=== PATIENT | male | born 1960 | race Caucasian/White ===

== ENCOUNTER 2019-06-24 11:50 | Inpatient (IN) ==
[2019-06-24] MEDS ORDERED: ASPIRIN PR ONE (12:42)
[2019-06-24] MEDS ORDERED: ASPIRIN PO ONE (12:42)
--- NOTE | 2019-06-24 12:44 | EKG Report ---
Test Performed on : 06/24/2019 12:02:28 PM Test Reason : chest pain Blood Pressure : / mmHG Vent. Rate : 095 BPM Atrial Rate : 095 BPM P-R Int : 128 ms QRS Dur : 088 ms QT Int : 336 ms P-R-T Axes : 064 058 053 degrees QTc Int : 422 ms Normal sinus rhythm. Normal ECG When compared with ECG of 07-JAN-2012 08:17, No significant change was found Unconfirmed Result
[2019-06-24] MEDS ORDERED: NS 1,000 ML IV ONE (12:59)
[2019-06-24 13:00] LABS: BASO# 0.02 X1000 (0.0-0.2); BASO% 0.2 % (0.0-0.8); HEMATOCRIT 37.3 % (42.0-52.0); HEMOGLOBIN 12.8 g/dL (14.0-18.0); IMM GRAN# 0.03 X1000 (0.0-0.04); IMM GRAN% 0.3 % (0.0-0.5); LYMPH# 1.26 X1000 (1.2-3.4); LYMPH% 12.7 % (20.5-51.1); MCH 29.3 PG (27-31); MCHC 34.3 g/dL (33-37); MCV 85.4 FL (81-99); MONO# 0.84 X1000 (0.11-0.59); MONO% 8.4 % (1.7-9.3); MPV 10.8 FL (7.4-10.4); NEUT# 7.71 X1000 (1.4-6.5); NEUT% 77.4 % (42.2-75.2); PLT 202 X1000 (130-400); RBC 4.37 XMIL (4.7-6.1); RDW 14.1 % (11.5-14.5); WBC 9.96 X1000 (4.8-10.8)
[2019-06-24 13:05] LABS: INR 1.12; PROTIME 14.5 Seconds (11.0-16.0)
[2019-06-24 13:06] LABS: PTT 32.3 Seconds (22.3-41.8)
--- NOTE | 2019-06-24 13:24 | Diag Imaging Result Doc PS360 ---
EXAM: CHEST-2 VIEWS 06/24/2019 HISTORY: cp TECHNIQUE: PA and lateral chest COMMENT: There is prominent interstitial opacity bilaterally which was also apparently present on 06/14/2017. The heart size and pulmonary vascularity are within normal limits. IMPRESSION: Questionable interstitial fibrosis. Otherwise no evidence of acute disease. Electronically signed by Lg Talbert 06/24/2019 1:22 PM
[2019-06-24 14:05] LABS: AGAP 18; ALB/GLOB RATIO 1.6; ALBUMIN 4.5 g/dL (3.5-5.0); ALKALINE PHOSPHATASE 64 U/L (32-122); BUN 41 mg/dL (8-22); CHLORIDE 97 mmol/L (98-107); CK PROFILE 196 U/L (24-204); COSMO 280; CREATININE 1.1 mg/dL (0.7-1.2); ESTIMATED GFR > 60; GLUCOSE 102 mg/dL (70-104); GOT 25 U/L (10-34); GPT 21 U/L (10-44); POTASSIUM 4.3 mmol/L (3.5-5.1); SODIUM 135 mmol/L (136-145); TCO2 20 mmol/L (25-35); TOTAL BILIRUBIN 0.52 mg/dL (0.20-1.00); TOTAL PROTEIN 7.3 g/dL (6.3-8.3)
[2019-06-24] MEDS ORDERED: ZOFRAN IV ONE (15:12)
[2019-06-24] MEDS ORDERED: MORPHINE IV ONE (15:12)
--- NOTE | 2019-06-24 15:19 | PROVIDER DOCUMENTATION ---
This chart was entered by Marques Sequeira Scribe, acting as scribe for Louis Reyna MD. HPI-Chest Pain - General Chief Complaint: Chest Pain Stated Complaint: CP Time Seen by Provider: 06/24/19 12:24 Source: patient Allergies/Adverse Reactions: Patient Allergies Allergy/AdvReac Type Severity Reaction Status Date / Time No Known Allergies Allergy Verified 06/14/17 11:58 Home Medications: Home Medication List Medication Instructions Recorded Confirmed Last Taken Type Amoxicillin/Pot Clavulanate 875 mg PO Q12HR #14 tablet 04/17/16 Unknown Rx [Augmentin] Ciprofloxacin 0.3% Ophth Soln 2 drop BOTH EARS TID #1 bottle 04/17/16 Unknown Rx [Ciloxan Ophth Soln] Hydrocodone/Acetaminophen [[place] 10 mg PO BID 04/17/16 06/24/19 Unknown History 10-325 Tablet] Metformin [Glucophage] 500 mg PO DAILY 04/17/16 06/24/19 Unknown History Diphenoxylate/Atropine [Lomotil] 1 each PO 4XDAY PRN PRN #20 tablet 06/14/17 Unknown Rx Calcium 500 mg PO DAILY 06/24/19 06/24/19 Unknown History Gabapentin 300 mg PO BID 06/24/19 06/24/19 Unknown History Hydrochlorothiazide 25 mg PO DAILY 06/24/19 06/24/19 Unknown History Levothyroxine [Synthroid] 137 mcg PO DAILY 06/24/19 06/24/19 Unknown History Methocarbamol 500 mg PO Q8H PRN PRN 06/24/19 06/24/19 Unknown History Metoprolol Succinate/Hctz 100 mg PO DAILY 06/24/19 06/24/19 Unknown History [Metoprolol ER-Hctz 100-12.5 mg] Omeprazole 40 mg PO DAILY 06/24/19 06/24/19 Unknown History - History of Present Illness-CP Nature of Presenting Problem: Pt is a 58 yom who presents to the ED with a CC of chest pain. Pt states his chest pain is in the center of his chest and describes it as a pressure. Pt states his chest pain began last night and has continued on and off to today. Pt reports being nauseas, vomiting, being congested, and coughing yesterday. Pt also complains of left sided neck pain, abdominal pain, and shortness of breath. Pt denies any fever or extremity pain. Pt states he was told to come to the ED by his PCP this morning for a low blood pressure. Pt reports being a 1/2 ppd smoker. Location: reports: central Chest Pain Radiation: reports: neck Quality of Pain: reports: pressure Severity in ED: mild Onset/Duration: 24 hours ago Timing: still present Associated Symptoms: reports: abdominal pain, nausea, shortness of breath, vom iting Similar Symptoms Previously?: No Recently Seen Here or By Another Healthcare Provider: Yes Review of Systems - Adult - REVIEW OF SYSTEMS - ADULT Constitutional: reports: see HPI Eyes: reports: no symptoms reported Ears, Nose, Mouth & Throat: reports: no symptoms reported Cardiovascular: reports: see HPI, chest pain Respiratory: reports: see HPI, cough, shortness of breath Gastrointestinal: reports: see HPI, abdominal pain, nausea, vomiting Genitourinary: reports: no symptoms reported Integumentary: reports: no symptoms reported Neurological: reports: no symptoms reported Psychiatric: reports: no symptoms reported Endocrine: reports: no symptoms reported Hematologic/Lymphatic: reports: no symptoms reported Allergic/Immunologic: reports: no symptoms reported All Other Systems: Reviewed and Negative Past History - Adult - PAST MEDICAL HISTORY-ADULT Review of Records: reports: Old Records Reviewed, Nursing Assessment Review, Me dications Reviewed, Social history reviewed & non-contributory. Major Childhood Illnesses: reports: denies history Cardiovascular: reports: HTN Respiratory: reports: denies history Gastrointestinal: reports: denies history Obstetrical/Gynecological: reports: denies history Genitourinary: reports: denies history Musculoskeletal: reports: denies history Neurological: reports: denies history Endocrine/Immune: reports: Diabetes, thyroid disorder Other Conditions: reports: deaf/hard of hearing - PRIOR SURGERIES/PROCEDURES Surgical/Procedure History: reports: none - IMMUNIZATION STATUS Childhood Immunizations: See Nurse Assessment Flu Vaccine: See Nurse Assessment - FAMILY HISTORY Family History: reviewed, not pertinent - SOCIAL HISTORY Smoking: non-smoker, quit greater than 1 year Substance Use: none/never, denies Alcohol Use Frequency: never Physical Exam-General - PHYSICAL EXAM-ADULT Initial Vital Signs Reviewed: Yes - CONSTITUTIONAL General Appearance: alert, mild distress - EYES Eyes: PERRL/EOMI, pink conjunctivae - NECK Neck: limited range of motion - RESPIRATORY Respiratory: chest non-tender, lungs clear, normal breath sounds, no pleuratic chest pain, no respiratory distress - CARDIOVASCULAR Cardiovascular: normal peripheral pulses, regular rate, rhythm, no edema, no gallop - GASTROINTESTINAL (ABDOMEN) Abdominal Exam: tenderness (RUQ, epigastric regions) - MUSCULOSKELETAL Extremity: normal range of motion, non-tender - SKIN Integumentary: normal color, warm/dry - NEUROLOGIC Neurologic: grossly normal, no motor/sensory deficits - PSYCHIATRIC Psych/Mental Status: normal mood/affect, normal thought content, normal thought process Progress - PLAN OF CARE/RESULTS Progress/Plan/Lab Results: Vital Signs - 8 hr 06/24/19 12:04 06/24/19 12:14 Temperature 98.2 F Pulse Rate 93 H 90 Respiratory Rate 20 17 Blood Pressure 93/67 88/65 O2 Sat by Pulse Oximetry 98 96 Laboratory Results - last 24 hr 06/24/19 06/24/19 06/24/19 12:47 12:47 12:47 WBC 9.96 RBC 4.37 L Hgb 12.8 L Hct 37.3 L MCV 85.4 MCH 29.3 MCHC 34.3 RDW Std Deviation 14.1 Plt Count 202 MPV 10.8 H Immature Gran % (Auto) 0.3 Neut % (Auto) 77.4 H Lymph % (Auto) 12.7 L [place] % (Auto) 8.4 Eos % (Auto) 1.0 Baso % (Auto) 0.2 Immature Gran # (Auto) 0.03 Neut # (Auto) 7.71 H Lymph # (Auto) 1.26 [place] # (Auto) 0.84 H Eos # (Auto) 0.10 Baso # (Auto) 0.02 PT INR PTT (Actin FS) Sodium 135 L Potassium 4.3 Chloride 97 L Carbon Dioxide 20 L Anion Gap 18 BUN 41 H Creatinine 1.1 Estimated GFR/1.73 m2 > 60 BUN/Creatinine Ratio 37 Glucose 102 Calculated Osmolality 280 Calcium 10.0 Total Bilirubin 0.52 AST 25 ALT 21 Alkaline Phosphatase 64 Creatine Kinase 196 Troponin T Otb-M-Yzidzbvbuas Pept 53 Total Protein 7.3 Albumin 4.5 Globulin 2.8 Albumin/Globulin Ratio 1.6 06/24/19 06/24/19 12:47 12:47 WBC RBC Hgb Hct MCV MCH MCHC RDW Std Deviation Plt Count MPV Immature Gran % (Auto) Neut % (Auto) Lymph % (Auto) [place] % (Auto) Eos % (Auto) Baso % (Auto) Immature Gran # (Auto) Neut # (Auto) Lymph # (Auto) [place] # (Auto) Eos # (Auto) Baso # (Auto) PT 14.5 INR 1.12 PTT (Actin FS) 32.3 Sodium Potassium Chloride Carbon Dioxide Anion Gap BUN Creatinine Estimated GFR/1.73 m2 BUN/Creatinine Ratio Glucose Calculated Osmolality Calcium Total Bilirubin AST ALT Alkaline Phosphatase Creatine Kinase Troponin T < 0.010 Boj-N-Xiewzldqlru Pept Total Protein Albumin Globulin Albumin/Globulin Ratio Orders Category Date Time Status Cardiac Monitoring DIRECTED Care 06/24/19 12:42 Active Oxygen Therapy- ED Nursing DIRECTED Care 06/24/19 12:42 Active Saline Loc NOW Care 06/24/19 12:42 Active CHEST-2 VIEWS [RAD] Stat Exams 06/24/19 12:42 Completed CBC WITH ELECTRONIC DIFF [HEME] Stat Lab 06/24/19 12:47 Completed CK PROFILE [SP CHEM] Stat Lab 06/24/19 12:47 Completed COMPREHENSIVE METABOLIC PANEL [CHEM] Stat Lab 06/24/19 12:47 Completed PRO B-NATRIURETIC PEPTIDE Stat Lab 06/24/19 12:47 Completed PROTIME WITH INR [COAG] Stat Lab 06/24/19 12:47 Completed PTT [COAG] Stat Lab 06/24/19 12:47 Completed TROPONIN T Stat Lab 06/24/19 12:47 Completed URINALYSIS W/POSS RFLX CULT [URINALYSIS] Stat Lab 06/24/19 15:07 Uncollected 0.9% Sodium Chloride Inj [Ns] 1,000 ml Med 06/24/19 12:59 Discontinued IV 999 mls/hr Aspirin Med 06/24/19 12:42 Discontinued 300 mg HI NOW ONE Aspirin Med 06/24/19 12:42 Discontinued 325 mg PO NOW ONE Morphine Med 06/24/19 15:12 Once 2 mg IV NOW ONE Ondansetron [Zofran] Med 06/24/19 15:12 Once 8 mg IV NOW ONE CP/SOB/Palp >45 yrs of Age Stat Oth 06/24/19 12:42 Ordered EKG [EKG] Stat Ther 06/24/19 12:08 Draft Result Diagrams: 06/24/19 12:47 06/24/19 12:47 - EKG 1 Time of EKG reading by physician:: 13:00 EKG Read and Signed by:: Louis Reyna EKG Interpretation (*Must complete 3 of following elements*): Normal Rate: 95 Rhythm: NSR [place]: normal QRS: normal HI Interval: normal ST Wave: normal - XRAY 1 XRAY: Bilateral XRAY Study: Chest Impression: See EMR Report (EXAM: CHEST-2 VIEWS 06/24/2019 HISTORY: cp TECHNIQUE: PA and lateral chest COMMENT: There is prominent interstitial opacity bilaterally which was also apparently present on 06/14/2017. The heart size and pulmonary vascularity are within normal limits. IMPRESSION: Questionable interstitial fibrosis. Otherwise no evidence of acute disease. Electronically signed by Lg Talbert 06/24/2019 1:22 PM 06/24/19 1322 Interpreting Physician: Lg Talbert MD Dictated Date/Time: 06/24/19 1321 cc: Louis Reyna MD; Ash Driver MD) Departure - Departure Date of Disposition Decision: 06/24/19 Time of Disposition Decision: 15:18 DIAGNOSIS: Hypotension Qualifiers: Hypotension type: unspecified hypotension type Qualified Code(s): I95.9 - Hypotension, unspecified Chest pain Qualifiers: Chest pain type: unspecified Qualified Code(s): R07.9 - Chest pain, unspecified Disposition: ADMITTED INPATIENT 09 Certified Medical Emergency: Emergent Condition: Good Additional Freetext Instructions: ED Follow Up Instructions: You have been treated by a care provider in the Emergency Department. These instructions are being provided to you so you can have an understanding of how to care for yourself upon discharge. Upon discharge from the Emergency Department, you are responsible for making arrangements for follow-up care by a physician of your choice. Take all prescribed medications as directed. Return to the Emergency Department immediately for any new or worsening sym ptoms. You may call the Physician Referral phone number at [phone] to obtain a list of Physicians who are taking new patients. Referrals and Follow-Ups: Ash Driver MD [Primary Care Provider] - - Critical Care Note This patient required my direct & personal management of CC.: No Attestation - Physician/ LILLIE Attestation Patient care was provided by Advanced Practice Provider:: No The physician spent face to face time with patient:: Yes Advanced Practice Provider documentation review:: Supervising physician onsite and consulted in the evaluation and care of this patient. The physician did have a face to face encounter with the patient. This chart was documented by the indicated scribe, (Marques Sequeira, [place]) and accurately reflects the services I performed and decisions made by me, Louis Reyna MD, as attested by the provider's signature.
[2019-06-24 16:12] LABS: URINE SOURCE CLEAN CATCH
[2019-06-24 16:14] LABS: BILIRUBIN URINE NEGATIVE (NEGATIVE); BLOOD URINE SMALL (NEGATIVE); COLOR YELLOW; GLUCOSE URINE NEGATIVE (NEGATIVE); KETONE URINE 10 mg/dL (NEGATIVE); LEUKOCYTES URINE NEGATIVE (NEGATIVE); NITRITE URINE NEGATIVE (NEGATIVE); PROTEIN URINE NEGATIVE (NEGATIVE); SP GRAVITY URINE 1.015; TURBIDITY URINE CLEAR (CLEAR); UROBILINOGEN URINE NORMAL (NORMAL)
[2019-06-24 16:15] LABS: UR EPITHELIAL CELLS <10 /HPF (<10); URINE BACTERIA NEGATIVE /HPF; URINE RBC <10 /HPF (<10); URINE WBC <10 /HPF (<10)
[2019-06-24] MEDS ORDERED: TYLENOL PO PRN (16:53)
[2019-06-24] MEDS ORDERED: PEPCID IV ONE (16:53)
[2019-06-24] MEDS ORDERED: SODIUM CHLORIDE 0.9% INJ ONE (16:53)
[2019-06-24] MEDS ORDERED: G.I. COCKTAIL PO ONE (16:53)
[2019-06-24] MEDS ORDERED: SODIUM CHLORIDE 0.9% INJ SCH (16:53)
[2019-06-24] MEDS: NS 1,000 ML IV SCH (17:47)
--- NOTE | 2019-06-24 17:53 | HISTORY AND PHYSICAL ---
PRIMARY CARE PROVIDER: GRAZYNA Weems [employer]VERTISING SALES MANAGER: Juan Pablo Mcinotsh MD HISTORY OF PRESENT ILLNESS: Mr. Zamorano is a 58-year-old male who carries a past medical history of hypertension, diabetes mellitus, hypothyroidism, hard of hearing. He reports over the past month he has had an epigastric type chest pain with eating and over the last few days, even having it with drinking water. He reported last night that the pain became so severe that he was unable to sleep, and it was causing him to have nausea and vomiting with food and drink. His blood pressure became low last night as well. He had some dizziness. He said the chest pain feels like a constant pain or pressure. He does have some left-sided neck discomfort but could not really describe it. He states he felt like he might have strained it, but it is not really muscle pain either. It hurts even with swallowing, moving his neck or just sitting still. He went to see his PCP today, Josephine Lau. He states his blood pressure was a little on the low side, so he was referred to the ED. When he came in initially, his blood pressure was 93/67. He was given IV morphine, dropped his pressure down to 88/65. He was given a fluid bolus. In the room, his blood pressure was 120s over 60s. He does have somewhat of a headache today. He denied any fever, chills, cough, palpitations. No change in bowel habits. No bright red or dark tarry stools. He states he has always had blood in his urine that they could never really find the root cause, but he does have a history of kidney stones. His first set of cardiac enzymes in the ED were negative. Chest x-ray is questionable for interstitial fibrosis. Initially, we will rule him out for any cardiac issues, seems to be more atypical type chest pain. We will also add IV PPI b.i.d. and give him a GI cocktail and possibly consult GI over the weekend as well. Could be a ulcer or some gastroparesis given his diabetes. PAST MEDICAL HISTORY: 1. Hypertension. 2. Diabetes mellitus. 3. Hypothyroidism. 4. Hard of hearing. SOCIAL HISTORY: He is . He quit smoking more than a year ago. No alcohol or illicit drug use. ALLERGIES: No known drug allergies. HOME MEDICATIONS: Are still in the process of being verified, but calcium, gabapentin, hydrochlorothiazide, [place], Synthroid, Glucophage, methocarbamol, metoprolol, Prilosec. PHYSICAL EXAMINATION: VITAL SIGNS: Temperature is 98.2 degrees, heart rate 90, respirations 17, blood pressure while I was in the room was 120s over 60s, O2 96% on room air. GENERAL: Mr. Zamorano is a 58-year-old male who is lying on the right side on the stretcher in no acute distress. HEENT: Atraumatic, normocephalic. PERRL. NECK: Supple. Trachea midline. CARDIOVASCULAR: S1, S2 appreciated. No murmurs, gallops or rubs noted. RESPIRATORY: Lung sounds clear bilaterally. GASTROINTESTINAL: Soft, nontender, nondistended. Positive bowel sounds 4 quads. EXTREMITIES: Negative for edema. Bilateral pedal pulses were palpable. NEUROLOGIC: No focal deficits noted. DIAGNOSTIC DATA: EKG normal sinus rhythm at 95 beats per minute. Chest x-ray questionable interstitial fibrosis. LABORATORY DATA: White count 9, hemoglobin and hematocrit 12 and 37, platelet count is 202,000. Sodium 135, potassium 4.3, BUN 41, creatinine 1.1, blood glucose is 102. Troponin less than 0.010. Urinalysis: Small blood, negative for bacteria, negative for nitrites. ASSESSMENT AND PLAN: 1. Atypical chest pain. We will continue to rule out with cardiac enzymes. We will get an echocardiogram, consult Cardiology in the a.m. Continue with full-dose aspirin. Monitor him on telemetry. Recheck an EKG in the morning. 2. Gastroesophageal reflux disease. We will continue with IV PPI, not rule out any ulcer or gastroparesis as he states the pain is worsening with food and even water. 3. Weight loss of 42 pounds over the past couple of months; however, the at the bedside stated that he was placed on Trulicity and then taken off to see if his symptoms got better. We will continue with. 4. Diabetes mellitus type 2. We will place him on fingerstick blood sugars and sliding scale. 5. Hypertension. Patient was borderline hypotensive on arrival, was given morphine and then a saline bolus. We will hold off on his blood pressure medications until the a.m. Further recommendation to follow physician evaluation, laboratory and diagnostic data. Dictated by GRAZYNA Silva for MD Eez Dixon#: [id number] cc: MD Josephine Dixon CRNP I performed a face to face encounter on the patient. I reviewed all labs and imaging on the patient. I agree with the H&P as dictated. MTDD
--- NOTE | 2019-06-24 18:31 | EKG Report ---
Test Performed on : 06/24/2019 6:20:01 PM Test Reason : CP Blood Pressure : / mmHG Vent. Rate : 101 BPM Atrial Rate : 101 BPM P-R Int : 160 ms QRS Dur : 092 ms QT Int : 332 ms P-R-T Axes : 000 004 129 degrees QTc Int : 430 ms Sinus tachycardia. Low voltage QRS Abnormal QRS-T angle, consider primary T wave abnormality Abnormal ECG When compared with ECG of 24-JUN-2019 12:02, (Unconfirmed) Nonspecific T wave abnormality now evident in Lateral leads Confirmed by Harriett Kim MD ([id number]) on 06/28/2019 8:28:19 AM
[2019-06-24 18:57] LABS: MAGNESIUM 1.4 mg/dL (1.5-2.7)
[2019-06-24] MEDS: NEURONTIN PO SCH (20:24)
[2019-06-24] MEDS: PEPCID IV SCH (20:25)
[2019-06-24] MEDS: ZOFRAN IV PRN (20:25)
[2019-06-24] MEDS: HUMALOG SUBQ SCH (20:34)
[2019-06-25] MEDS: ZOFRAN IV PRN (03:34)
[2019-06-25] MEDS: HUMALOG SUBQ SCH ×4 (06:01→20:59)
[2019-06-25 06:40] LABS: BASO# 0.02 X1000 (0.0-0.2); BASO% 0.2 % (0.0-0.8); EOS# 0.09 X1000 (0.0-0.7); HEMATOCRIT 35.5 % (42.0-52.0); HEMOGLOBIN 11.7 g/dL (14.0-18.0); LYMPH# 1.26 X1000 (1.2-3.4); LYMPH% 14.4 % (20.5-51.1); MCH 29.2 PG (27-31); MCV 88.5 FL (81-99); MONO# 0.98 X1000 (0.11-0.59); MONO% 11.2 % (1.7-9.3); NEUT# 6.37 X1000 (1.4-6.5); NEUT% 73.2 % (42.2-75.2); PLT 182 X1000 (130-400); RBC 4.01 XMIL (4.7-6.1); RDW 14.1 % (11.5-14.5); WBC 8.72 X1000 (4.8-10.8)
[2019-06-25 07:03] LABS: HEMOGLOBIN A1C 5.9 % (4.8-6.0)
[2019-06-25 07:23] LABS: AGAP 9; ALB/GLOB RATIO 1.2; ALBUMIN 3.9 g/dL (3.5-5.0); ALKALINE PHOSPHATASE 57 U/L (32-122); BUN 25 mg/dL (8-22); CALCIUM 9.1 mg/dL (8.8-10.2); CHLORIDE 101 mmol/L (98-107); CHOLESTEROL 168 mg/dL (0-200); COSMO 276; ESTIMATED GFR > 60; GLUCOSE 98 mg/dL (70-104); GOT 15 U/L (10-34); GPT 16 U/L (10-44); HDL 27 mg/dL (35-55); LDL 112 mg/dL; SODIUM 136 mmol/L (136-145); TCO2 26 mmol/L (25-35); TOTAL BILIRUBIN 0.42 mg/dL (0.20-1.00); TOTAL PROTEIN 7.1 g/dL (6.3-8.3); TRIGLYCERIDES 145 mg/dL (39-160); VLDL 29 mg/dL
--- NOTE | 2019-06-25 07:38 | Diag Imaging Result Doc PS360 ---
CHEST-PORTABLE - 06/25/2019 INDICATION: Chest Pain COMPARISON: 06/24/2019 FINDINGS: The lungs are normally expanded and clear. Heart size and mediastinal contours are normal. No pneumothorax or pleural effusion. IMPRESSION: Negative exam. Electronically signed by Presley Turner 06/25/2019 7:36 AM
[2019-06-25] MEDS: NS 1,000 ML IV SCH (07:59)
[2019-06-25] MEDS ORDERED: NORCO-10 PO SCH (09:00)
[2019-06-25] MEDS: SYNTHROID PO SCH (09:11)
[2019-06-25] MEDS: NEURONTIN PO SCH ×2 (09:12→20:59)
[2019-06-25] MEDS: ASPIRIN PO SCH (09:12)
[2019-06-25] MEDS: PEPCID IV SCH ×2 (09:12→20:59)
--- NOTE | 2019-06-25 09:14 | EKG Report ---
Test Performed on : 06/25/2019 06:36:52 AM Test Reason : chest pain Blood Pressure : / mmHG Vent. Rate : 091 BPM Atrial Rate : 091 BPM P-R Int : 134 ms QRS Dur : 094 ms QT Int : 354 ms P-R-T Axes : 069 042 054 degrees QTc Int : 435 ms Normal sinus rhythm. Normal ECG When compared with ECG of 24-JUN-2019 18:20, (Unconfirmed) Nonspecific T wave abnormality no longer evident in Lateral leads Confirmed by Harriett Kmi MD ([id number]) on 06/27/2019 8:33:37 AM
--- NOTE | 2019-06-25 12:34 | ECHO REPORT ---
ORDER DATE: 06/24/2019 MEASUREMENTS: Septal thickness 1.1, left ventricular internal diameter end-diastole 4.1, posterior wall thickness 1.0, left ventricular internal diameter end-systole 1.8, aortic root 3.5, left atrium 3.4. SUMMARY: 1. Fair quality study. 2. Aortic valve is trileaflet and opens normally on 2-dimensional images. Peak gradient across aortic valve is less than 10 mmHg. Mitral, tricuspid, and pulmonic valves are without evidence of structural abnormality with trace tricuspid regurgitation. Aortic root is normal size. 3. Normal left ventricular dimensions demonstrated. Estimated left ventricular ejection fraction appears to be at least 70% with left the ventricle appearing somewhat hyperdynamic. No regional wall motion abnormalities are evident. Left atrium, right atrium, right ventricle are normal size with normal left ventricular systolic function. 4. No pericardial effusion. 5. Appearance of inferior vena cava suggests normal central venous pressure. CONCLUSIONS: 1. No significant valvular abnormality. 2. Estimated left ejection ventricular fraction at least 70% without regional wall motion abnormality evident. cc: Ronan Segovia MD
[2019-06-25 14:31] LABS: AMYLASE 47 U/L (20-200); LIPASE 43 U/L (13-60)
[2019-06-25] MEDS ORDERED: MAGNESIUM SULFATE 2 GM/S.W.I. 2 GM/50 ML IVPB IV ONE (14:51)
[2019-06-25] MEDS: NORCO-10 PO PRN ×2 (14:54→20:59)
--- NOTE | 2019-06-25 15:15 | CARDIOLOGY CONSULTATION ---
DATE: 06/25/2019 A 58-year-old gentleman with history of hypertension, diabetes, hypothyroidism comes with complaints of epigastric lower sternal chest discomfort associated with eating which has been going on for the last month. Since the last couple of days symptoms worsened. Even after eating a bite of food he has discomfort in the epigastric lower sternal region. He does not complain of any acid eructation. He has had severe discomfort at times that he was unable to rest comfortably. He does have some discomfort in his left side of his neck not related to any food or exertion. However on exertion he does not complain of any discomfort. He has noticed increasing dyspnea on exertion. When he came to the emergency room initial blood pressure was 93/67. He was given IV fluids. Blood pressures have improved. He denies any hematemesis or melena. There is no history of nausea, vomiting. There is no history of any difficulty in swallowing food. PAST MEDICAL HISTORY: 1. Hypertension. 2. Diabetes. 3. Hypothyroidism. 4. Hard of hearing. SOCIAL HISTORY: He is . Quit smoking more than a year ago. There is no history of alcohol abuse. ALLERGIES: No known drug allergies. HOME MEDICATIONS: 1. Metformin 500 mg a day. 2. Gabapentin 300 mg p.o. b.i.d. 3. Hydrochlorothiazide 25 mg a day. 4. Levothyroxine 137 mcg. 5. Methocarbamol. 6. Metoprolol succinate 100 mg p.o. daily. 7. Omeprazole. PHYSICAL EXAMINATION: Blood pressure today was 113/69.Cardiovascular System: Normal jugular venous pressure. There is no thyromegaly. No carotid bruit. First and second heart sounds were heard. There was no S3 gallop. Respiratory System: Normal air entry. There are no crepitations or rhonchi. Abdomen: Mild tenderness in the epigastrium. Central nervous system: Alert and was moving all 4 extremities. Extremities: Revealed no pedal edema. HEENT: Atraumatic, normocephalic. Pupils were equal and reacting to light. His electrocardiogram revealed normal sinus rhythm. There were no ST-T changes to suggest ischemia or infarction. Chest x-ray unremarkable. He had an echocardiogram done which revealed ejection fraction of 70%. In 06/14/2017, he had a CT scan of his abdomen done which revealed possible enterocolitis at that time. He also had some nonobstructing renal stones at that time. An abdominal ultrasound in 2017 revealed mild hypersteatosis, no acute evidence at that time. LABORATORY EXAMINATION: Sodium 136, potassium 4.0. BUN 25 creatinine 1.0. Cardiac enzymes negative. LDL cholesterol 112, triglycerides 145. Liver functions were normal. WBC 8.7, hemoglobin 11.7, hematocrit 35, platelet count of 182,000. ASSESSMENT AND PLAN: 1. Mr. Patrice Zamorano is a 58-year-old gentleman with history of hypertension, diabetes, hypothyroidism who comes with complaints of having epigastric and retrosternal discomfort after he eats. He does not have any history of acid eructations and the pain is in the epigastric lower sternal region which is constant with significant pressure and tends to happen as soon as he eats food. From a cardiac standpoint, his echocardiogram was unremarkable. EKG and cardiac enzymes were negative. However, he has obesity, diabetes, hypertension and from a history standpoint this could represent cardiac ischemia. I will set him up to undergo a Lexiscan Cardiolite stress test to rule out ischemia. 2. On examination he does have some epigastric tenderness. Previous ultrasounds in 2017 were unremarkable. We will check serum amylase, lipase as well as abdominal ultrasound to make sure there is no gallbladder disease. 3. His CT scan in 2017 of the abdomen had nonobstructing renal stones. No symptoms pertaining to that at the present time. Thank you for the consult. We will follow hospital course. cc: Justin Yousif MD
--- NOTE | 2019-06-25 16:35 | PROGRESS NOTE ---
DATE: 06/25/2019 SUBJECTIVE: The patient is resting comfortably in bed. He complains of intermittent chest pain. He also complains of back pain that is chronic. OBJECTIVE: Vital Signs: Temperature 97.9 degrees, blood pressure 113/69, heart rate 82, respirations 20, O2 saturation 93% on room air. General: This is a morbidly obese male lying in bed in no acute distress. Heart: S1, S2 normal. Regular rate and rhythm. Lungs: Equal air entry bilaterally. No wheezing, no rales, no rhonchi. Abdomen: Positive bowel sounds. Soft, nontender, nondistended. Extremities: No edema, no cyanosis. Neuro: The patient is alert and oriented x3. LAB: Reviewed. ASSESSMENT AND PLAN: 1. Chest pain. The patient is scheduled to undergo a stress test on Thursday. Further recommendations to follow from the track laminating machine tender. 2. Chronic back pain. Continue with p.r.n. pain medication. 3. Hypothyroidism. Continue on Synthroid. 4. Diabetes mellitus type 2. Continue on sliding scale insulin. 5. Hypertension. Controlled. 6. Deep vein thrombosis prophylaxis. Will start the patient on Lovenox. cc: Jailene Rose MD
[2019-06-25] MEDS: LOVENOX SUBQ SCH (21:00)
[2019-06-26] MEDS: HUMALOG SUBQ SCH ×4 (06:04→21:26)
[2019-06-26 06:12] LABS: HEMATOCRIT 36.7 % (42.0-52.0); HEMOGLOBIN 12.3 g/dL (14.0-18.0); MCH 28.9 PG (27-31); MCHC 33.5 g/dL (33-37); MCV 86.4 FL (81-99); MPV 10.8 FL (7.4-10.4); RBC 4.25 XMIL (4.7-6.1); RDW 13.9 % (11.5-14.5); WBC 8.03 X1000 (4.8-10.8)
[2019-06-26 06:54] LABS: AGAP 13; BUN 19 mg/dL (8-22); CHLORIDE 100 mmol/L (98-107); COSMO 276; CREATININE 0.9 mg/dL (0.7-1.2); ESTIMATED GFR > 60; GLUCOSE 96 mg/dL (70-104); POTASSIUM 4.7 mmol/L (3.5-5.1); SODIUM 137 mmol/L (136-145); TCO2 24 mmol/L (25-35)
[2019-06-26] MEDS ORDERED: SODIUM CHLORIDE 0.9% INJ SCH (09:00)
[2019-06-26] MEDS: PROTONIX IV SCH ×2 (09:43→21:21)
[2019-06-26] MEDS: COLACE PO SCH (09:43)
[2019-06-26] MEDS: NORCO-10 PO PRN (09:43)
[2019-06-26] MEDS: ASPIRIN PO SCH (09:43)
[2019-06-26] MEDS: SYNTHROID PO SCH (09:43)
[2019-06-26] MEDS: MIRALAX PO SCH ×2 (09:43→21:28)
[2019-06-26] MEDS: NEURONTIN PO SCH ×2 (09:43→21:22)
[2019-06-26] MEDS: ZOFRAN IV PRN ×4 (09:48→21:21)
[2019-06-26] MEDS ORDERED: CLARITIN PO ONE (09:53)
[2019-06-26] MEDS ORDERED: FLEXERIL PO ONE (09:59)
[2019-06-26] MEDS: DILAUDID IV PRN ×4 (10:13→21:21)
--- NOTE | 2019-06-26 10:20 | Diag Imaging Result Doc PS360 ---
EXAM: US GB < RUQ (LIMITED) - 06/26/2019 HISTORY: epigatric discomfort TECHNIQUE: Ultrasound gallbladder COMPARISON: 06/14/2017 FINDINGS: The gallbladder is mildly prominent in size similar to the prior exam. The gallbladder otherwise demonstrates no abnormalities. There is no evidence of gallstones. The technologist reports negative sonographic Levy's sign. The common bile duct is normal caliber at 5 mm. There are no discrete abnormalities of the liver, right kidney, or visualized portions of the pancreas identified. IMPRESSION: Nonspecific mildly prominent gallbladder size, similar to the prior exam. No visible gallbladder abnormality otherwise. No evidence of gallstones. Normal caliber common bile duct at 5 mm. Electronically signed by Talon Dowell 06/26/2019 10:18 AM
--- NOTE | 2019-06-26 10:29 | Diag Imaging Result Doc PS360 ---
EXAM: ABDOMEN FLAT/UPRIGHT - 06/26/2019 HISTORY: abdominal pain TECHNIQUE: Supine and upright abdomen COMPARISON: None. FINDINGS: The bowel gas pattern appears nonspecific and nonobstructive. There is no discrete free air identified. There is a small calcification at the left midabdomen there is a stone at the left kidney. There has been prior kyphoplasty at L1 and L2. IMPRESSION: Nonspecific bowel gas pattern. Possible stone at left kidney. Electronically signed by Talon Dowell 06/26/2019 10:27 AM
--- NOTE | 2019-06-26 12:07 | Diag Imaging Result Doc PS360 ---
EXAM: CT ABDOMEN/PELVIS W/O CONTRAST - 06/26/2019 HISTORY: nephrolithiasis/abdominal pain TECHNIQUE: CT renal stone search without contrast COMPARISON: 06/14/2017 CT abdomen/pelvis with contrast FINDINGS: There are nonobstructing stones in the bilateral kidneys measuring 4.5 mm on the right and 6 mm on the left. There is no obstructing renal stone or hydronephrosis identified. There is no evidence of bowel obstruction. There is a moderate amount retained fecal debris in the colon. The appendix is not discretely visualized, but there is no obvious pericecal inflammation. There is a small fat-containing umbilical hernia. There is no free air. There is apparent wall thickening at the visualized distal esophagus. There is questionable wall thickening at the proximal stomach versus artifact from limited luminal distention. There are no calcified gallstones or pericholecystic inflammation identified. There are small bilateral pleural effusions. There has been interval development of retroperitoneal adenopathy. There is been development of some soft tissue stranding and retroperitoneal fat. IMPRESSION: Nonobstructing stones in bilateral kidneys. No evidence of obstructing renal stone or hydronephrosis. Apparent wall thickening at distal esophagus. Questionable wall thickening at proximal stomach versus artifact from limited luminal distention. Retroperitoneal adenopathy. This exam was performed using automated exposure control, adjustment of mA or kV according to patient size, and/or use of iterative reconstruction technique. Electronically signed by Talon Dowell 06/26/2019 12:04 PM
--- NOTE | 2019-06-26 14:11 | PROGRESS NOTE ---
DATE: 06/26/2019 SUBJECTIVE: The patient is complaining of severe back pain as well as nausea and vomiting and abdominal pain. OBJECTIVE: Vital Signs: Temperature 98.3 degrees, blood pressure 119/87, heart rate 91, respirations 18, O2 saturation 96% on room air. General: This is a chronically ill-appearing elderly male lying in bed in no acute distress. Heart: S1, S2 normal, tachycardic. Lungs: Clear to auscultation bilaterally. Abdomen: Positive bowel sounds. Soft, nontender, nondistended. Extremities: No edema, no cyanosis. Neuro: The patient is alert and oriented x4. LABS: White blood cell count 8, hemoglobin 12, hematocrit 36, platelets 214,000. Sodium 137, potassium 4.7, chloride 100, CO2 24, BUN 19, creatinine 0.9, glucose 96. ASSESSMENT AND PLAN: 1. Chest pain. Patient is scheduled for a stress test tomorrow. Cardiology is following. 2. Abdominal pain with nausea and vomiting. The patient has not had a bowel movement in several days. Will start laxative therapy. The abdominal x-ray is unremarkable. Will await further recommendations from GI. 3. Chronic back pain. Continue with pain medication. 4. Diabetes mellitus type 2. Continue on sliding scale insulin. 5. Hypothyroidism. Continue on Synthroid. 6. Deep vein thrombosis prophylaxis. Continue on Lovenox. cc: Jailene Rose MD
--- NOTE | 2019-06-26 18:14 | GASTROENTEROLOGY CONSULTATION ---
DATE: 06/26/2019 ADMITTING PHYSICIAN: Dr. Rose. PRIMARY CARE PHYSICIAN: Dr. Driver. REASON FOR CONSULTATION: Nausea, vomiting, and abnormal CT scan. HISTORY OF PRESENT ILLNESS: Mr. Zamorano is a 58-year-old male who was admitted on 06/23/2019 for epigastric pain and chest pain which worsens with eating and drinking water. He also reported some dizziness on admission. He has a history of constipation. He has not had a bowel movement for last 5 days. According to the patient, his last colonoscopy was 3 years ago. He also had an EGD at the same time and he was told he had reflux disease. While being in the hospital, he was seen by Cardiology and he is planned for Lexiscan stress test tomorrow with Dr. Yousif. He had a CT scan done during this admission which showed evidence of thickening of the wall of the distal esophagus, likely suggesting esophagitis reflux disease. Gastroenterology was consulted for further management. PAST MEDICAL HISTORY: Hypertension, diabetes mellitus, hypothyroidism, hard of hearing, constipation, chronic back pain, on narcotics. PAST SURGICAL HISTORY: EGD and colonoscopy 3 years ago. SOCIAL HISTORY: He is . He quit smoking more than a year ago. No history of alcohol or illicit drug abuse. ALLERGIES: No known drug allergies. FAMILY HISTORY: Noncontributory. MEDICATIONS: In the hospital include Dilaudid, Tylenol, aspirin 325 mg every day, Colace, Lovenox 40 mg once daily, Neurontin 300 mg p.o. b.i.d., [place] 10 every 6 hours as needed, Humalog sliding scale, Synthroid, Zofran, Protonix, MiraLAX 17 g p.o. b.i.d., Flexeril 5 mg given once. The patient is currently on a diabetic diet. REVIEW OF SYSTEMS: Denies any current fevers, rigors, chills. Denies any shortness of breath. Does have atypical chest pain and epigastric pain. He also is has having intermittent nausea and vomiting, not able to keep anything down. He has severe constipation. Last bowel movement was more than 5 days ago. He has been on chronic narcotics which are causing him to be constipated. He does have chronic back pain for which he has been on narcotics for a very long time. He denies any neurologic complaints. He denies any vomiting blood or passing blood in the stools. PHYSICAL EXAMINATION: Vital signs: Temperature 98.3 degrees, pulse rate of 91, respiratory rate of 18, blood pressure 119/87, saturating 92% on room air. Body weight of 214 pounds. BMI 30.7 kg/m2. General: Moderately built, moderately nourished, lying in bed, in no acute distress. HEENT: Pale conjunctivae. No icterus. Pupils equal, reactive to light. Neck: Supple. Abdomen: Obese, soft. Question of abdominal wall hernia below the umbilicus. No guarding. No rebound. Extremities: No cyanosis, clubbing. Neurologic: Alert, awake, oriented x3. LABS: Hemoglobin and hematocrit are 12.3 and 36.7, white count of 8.03, platelet count of 214,000. Sedimentation rate of 53. Sodium 137, potassium 4.7, chloride 100, bicarb 24, anion gap 13, BUN of 19, creatinine 0.9, glucose of 109, calcium is 9, magnesium 1.8. CRP is 99.31. AST 15, ALT 16, alkaline phosphatase 57, total protein is 7.1, albumin of 3.9, lipase of 37. Urinalysis showing positive ketones, positive small blood. CT of the abdomen and pelvis done on 06/26/2019 showed: 1. Nonobstructive stones in the bilateral kidneys. No evidence of any obstructing renal stone or hydronephrosis. 2. Distal wall thickening in the esophagus. Questionable wall thickening of the proximal stomach versus artifact from limited luminal distention. 3. Retroperitoneal adenopathy. 4. No evidence any bowel obstruction. 5. Moderate amount of retained fecal debris in the colon. The appendix is not discretely visualized. There is a small fat containing umbilical hernia. There is no free air. There are no calcified gallstones. There are small bilateral pleural effusions. There is development of some soft tissue stranding in the retroperitoneal fat. IMPRESSION AND PLAN: 1. Chest pain. He is scheduled for a stress test tomorrow with Dr. Yousif. I spoke with Dr. Yousif. Based on stress test we will schedule him for an EGD likely tomorrow or Thursday. 2. Thickening of the distal esophagus and proximal stomach on CT scan. Likely representing reflux disease. We will keep him on PPIs. 3. Nausea and vomiting. Patient will be on IV Zofran as needed. 4. Severe constipation. Has not had a bowel movement for the last 5 days. We will start on MiraLAX 17 g p.o. b.i.d. and Colace once daily. We will give him soapsuds enema x2 now and we will given it once at bedtime. The patient needs to reduce the narcotics to as low as possible. 5. Deep vein thrombosis prophylaxis with Lovenox. 6. Gastrointestinal prophylaxis. PPIs, which will also help with the reflux disease. 7. The patient is to follow gastroesophageal reflux lifestyle. 8. Diabetes. Patient is on sliding-scale insulin. He will need to keep good control of his diabetes. 9. Obesity. Patient needs to lose weight. He was counseled. 10. The patient is a former smoker. He quit smoking a year ago. 11. Further recommendations to follow. Pending the above, will likely schedule for EGD tomorrow or the day after, depending on the cardiology workup. The above plan was discussed with the patient and all questions answered. Please call us with any further questions. Thank you for allowing us to participate in the care of the patient. cc: MD Jailene Mcconnell MD Gregory S. Cheatham, MD MTDD
[2019-06-26] MEDS: LOVENOX SUBQ SCH (21:31)
[2019-06-27] MEDS: DILAUDID IV PRN ×4 (01:18→17:51)
[2019-06-27] MEDS: ZOFRAN IV PRN ×4 (01:19→17:51)
[2019-06-27 06:33] LABS: HEMOGLOBIN 11.7 g/dL (14.0-18.0); MCH 29.5 PG (27-31); MCHC 33.4 g/dL (33-37); MCV 88.2 FL (81-99); MPV 10.9 FL (7.4-10.4); RBC 3.97 XMIL (4.7-6.1); WBC 5.97 X1000 (4.8-10.8)
[2019-06-27 06:45] LABS: AGAP 14; ALB/GLOB RATIO 1.1; ALBUMIN 3.5 g/dL (3.5-5.0); ALKALINE PHOSPHATASE 64 U/L (32-122); BUN 17 mg/dL (8-22); CHLORIDE 95 mmol/L (98-107); COSMO 268; CREATININE 0.9 mg/dL (0.7-1.2); ESTIMATED GFR > 60; GLUCOSE 92 mg/dL (70-104); GOT 16 U/L (10-34); GPT 14 U/L (10-44); POTASSIUM 4.2 mmol/L (3.5-5.1); SODIUM 133 mmol/L (136-145); TCO2 24 mmol/L (25-35); TOTAL BILIRUBIN 0.37 mg/dL (0.20-1.00); TOTAL PROTEIN 6.8 g/dL (6.3-8.3)
[2019-06-27] MEDS: HUMALOG SUBQ SCH ×4 (06:53→22:38)
[2019-06-27] MEDS: SYNTHROID PO SCH (07:09)
[2019-06-27] MEDS ORDERED: CLARITIN PO SCH (09:00)
[2019-06-27] MEDS ORDERED: LEXISCAN ONE (10:21)
[2019-06-27] MEDS: NEURONTIN PO SCH ×2 (12:19→20:36)
[2019-06-27] MEDS: PROTONIX IV SCH ×2 (12:19→20:36)
[2019-06-27] MEDS: ASPIRIN PO SCH (12:19)
[2019-06-27] MEDS: COLACE PO SCH (12:19)
[2019-06-27] MEDS: MIRALAX PO SCH ×2 (12:23→20:37)
--- NOTE | 2019-06-27 14:23 | GASTROENTEROLOGY PROGRESS NOTE ---
DATE: 06/27/2019 ATTENDING PHYSICIAN: Dr. Rose. PRIMARY CARE PHYSICIAN: Dr. Driver. SUBJECTIVE: Patient currently is in the nuclear medicine. He is awaiting his cardiology stress test. So we will cancel his EGD today and we will reschedule it for tomorrow. The patient continues to complain of nausea and vomiting but according to the nursing records, the patient was able to eat 75% of his meal yesterday. He had 1 bowel movement yesterday in the night after he was given soapsuds enemas. He has been constipated for last 6 days. OBJECTIVE: Vital signs: Temperature 98.1 degrees, pulse rate of 99, respiratory rate of 18, blood pressure 130/80, saturating 98% room air. Body weight of 214 pounds. BMI 30.7 kg/m2. General: Moderately built, moderately nourished, in no acute distress. HEENT: Mild pallor. No icterus. Neck: Supple. Abdomen: Obese, soft. Mild protuberance. No guarding or rebound. Extremities: No cyanosis, clubbing. Neurologic: He is alert, awake, oriented x3. LABS: Hemoglobin and hematocrit are 11.7 and 35, white count of 5.97, platelet count of 209,000. Sodium 130, potassium 4.2, chloride 95, bicarb 24, anion gap of 14, BUN of 17, creatinine 0.9, glucose of 92, calcium is 9. Total bilirubin is 0.37, AST 16, ALT 14, alkaline phosphatase 60, total protein 6.2, albumin 3.5. CRP is 99.31. Lipase of 37, amylase of 47. Urinalysis is showing positive small blood and positive ketones. CT of the abdomen and pelvis done yesterday showed nonobstructing stones in the bilateral kidneys. thickening of the distal esophagus. Questionable wall thickening of the proximal stomach versus artifact from limited luminal distention. Retroperitoneal adenopathy. Moderate amount of retained fecal debris in the colon. Small fat containing umbilical hernia. IMPRESSION AND PLAN: 1. Nausea and vomiting. We will schedule the patient for an EGD tomorrow. I discussed the risks, benefits, indications, and alternatives to the procedure with the patient and all questions answered. The procedure will be performed by Dr. Burnette tomorrow. 2. Chest pain. Patient is being worked up by Cardiology. He is awaiting a stress test today. We will need to follow up the results of the stress test before proceeding with EGD tomorrow. 3. Abnormal CT scan showing evidence of thickening of the distal wall the esophagus and likely proximal stomach thickening. We will check with EGD tomorrow. We will continue PPIs. 4. Severe constipation. The patient will need to reduce the dose of narcotics as low as possible. Will continue MiraLAX twice daily and Colace once daily. He will continue on soapsuds enema once at bedtime. 5. Deep vein thrombosis prophylaxis with Lovenox. 6. Gastrointestinal prophylaxis. PPIs. 7. The patient will need to lose weight. 8. Diabetes. Patient is on sliding scale insulin. We will need to keep good control of his diabetes. 9. Former smoker. Patient quit smoking a year ago. 10. Anemia. Continue to watch for now. 11. Colonoscopy. His last 1 was done 2-3 years ago. He will follow up in the clinic as an outpatient for possible outpatient colonoscopy if he continues to be anemic. 12. Further recommendations to follow pending the hospital course. The above plan was discussed with the patient and all questions answered. Please call us with any questions. cc: MD Ash Mcconnell MD MTDD
[2019-06-27] MEDS: NORCO-10 PO PRN (15:03)
--- NOTE | 2019-06-27 15:52 | Diag Imaging Result Document ---
PROCEDURE NAME: MYOCARDIAL PERF SCAN, STR/REST - 06/27/2019 LEXISCAN SESTAMIBI INTERPRETATION: SUMMARY: The patient was administered 16.2 mCi of technetium-99m sestamibi, after which resting cardiac images were obtained. The patient was subsequently administered Lexiscan 0.4 mg intravenously, after which the heart rate went from 0.08 beats per minute to 129 beats per minute and the blood pressure went from 145/81 to 102/62. With Lexiscan, the patient denied chest discomfort. Following the administration of Lexiscan, the patient was administered 43.0 mCi of technetium-99m sestamibi, after which gated stress cardiac images were obtained. Baseline ECG demonstrated normal sinus rhythm and was within normal limits. With Lexiscan, there were no diagnostic ST-segment changes. SPECT images were reconstructed in the short, horizontal long, and vertical long axes. Review of these images demonstrated mildly diminished activity in the base of the inferior wall on stress images which appeared similar on resting images. No significant reversibility is evident. Gated images demonstrate a calculated left ventricular ejection fraction of 75% with symmetrical wall motion/thickening. CONCLUSIONS: 1. Adequate response to Lexiscan. 2. Clinically negative for chest pain. 3. Electrocardiographically negative for Lexiscan-induced myocardial ischemia. 4. Lexiscan sestamibi images demonstrate fixed mildly diminished activity in the base of the inferior wall with corresponding preserved regional wall motion consistent with soft tissue attenuation. There is no scintigraphic evidence of inducible myocardial ischemia. Normal left ventricular systolic function demonstrated. cc: MD Justin Price MD
--- NOTE | 2019-06-27 18:21 | PROGRESS NOTE ---
DATE: 06/27/2019 SUBJECTIVE: The patient continues to complain of back pain. No acute events noted overnight. OBJECTIVE: Vital Signs: Temperature 97.8 degrees, blood pressure 126/81, heart rate 105, respirations 18, O2 saturation 94% on room air. General: This is a chronically ill-appearing elderly male lying in bed in no acute distress. Heart: S1, S2 normal. Tachycardic. Lungs: Clear to auscultation bilaterally. Abdomen: Positive bowel sounds. Soft, nontender, nondistended. Extremities: No edema, no cyanosis. Neurologic: The patient is alert and oriented x4. LABORATORY DATA: Sodium 133, potassium 4.2, chloride 95, CO2 24, BUN 17, creatinine 0.9, glucose 92. ASSESSMENT AND PLAN: 1. Chest pain. The stress test was noted to be negative. 2. Abdominal pain with constipation. The patient is scheduled for an esophagogastroduodenoscopy tomorrow. 3. Chronic back pain. We will order an MRI of the lumbar spine to be done tomorrow. 4. Obesity. Aware. 5. Hypertension. Controlled. 6. Hypothyroidism. Continue on Synthroid. 7. Diabetes mellitus type 2. Continue on sliding scale insulin. cc: Jailene Rose MD MTDD
[2019-06-28] MEDS: DILAUDID IV PRN ×2 (01:19→04:38)
[2019-06-28] MEDS: HUMALOG SUBQ SCH ×2 (06:19→14:39)
[2019-06-28 06:35] LABS: HEMATOCRIT 35.4 % (42.0-52.0); HEMOGLOBIN 11.8 g/dL (14.0-18.0); MCH 29.3 PG (27-31); MCHC 33.3 g/dL (33-37); MCV 87.8 FL (81-99); MPV 10.7 FL (7.4-10.4); RBC 4.03 XMIL (4.7-6.1); RDW 13.7 % (11.5-14.5); WBC 6.14 X1000 (4.8-10.8)
[2019-06-28 07:02] LABS: AGAP 14; BUN 16 mg/dL (8-22); CALCIUM 9.3 mg/dL (8.8-10.2); CHLORIDE 97 mmol/L (98-107); COSMO 273; CREATININE 0.8 mg/dL (0.7-1.2); ESTIMATED GFR > 60; GLUCOSE 95 mg/dL (70-104); POTASSIUM 4.2 mmol/L (3.5-5.1); SODIUM 136 mmol/L (136-145); TCO2 25 mmol/L (25-35)
[2019-06-28] MEDS ORDERED: ROBINUL ONE (08:10)
[2019-06-28] MEDS ORDERED: DIPRIVAN 1% ONE ×2 (08:10→08:49)
[2019-06-28] MEDS ORDERED: XYLOCAINE-MPF 2% ONE (08:10)
--- NOTE | 2019-06-28 09:06 | ENDOSCOPY OPERATIVE NOTE ---
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 PROCEDURE PERFORMED: EGD w/ biopsy EGD w/ balloon dilation of esophagus MEDICATIONS: Per Anesthesia TOPICAL ANESTHETIC: none CONSENT: The patient understands the risks and benefits of the procedure and understands that these r isks include, but are not limited to: sedation, allergic reaction, infection, perforation and/or bleeding. Alternative means of evaluation and treatment include, among others: physical exam, x-rays, and/or surgical intervention. The patient elects to proceed with this endoscopic procedure. HISORY AND PHYSICAL: 06/28/2019 function. Hand hygiene and appropriate measures for infection prevention was taken. After the risks, benefits and alternatives of the procedure were thoroughly explained, Informed consent was verified, confirmed and timeout was successfully executed by the treatment team. The patient was anesthetized with topical anesthesia and the EQ15-z29 ([id number]) endoscope was introduced through the mouth and advanced to the second portion of the duoden um. Retroflexion was performed in the stomach and revealed no abnormalities. The gastroscope was then slowly withdraw n and removed. ESOPHAGUS: There was a benign appearing stricture with an inner diameter of 9mm and length of 10mm. The stricture was traversable. Using a TTS-balloon the stricture was dilated up to 10mm. The balloon was held inflate d for 30 seconds. There was LA Grade C esophagus found in the distal esophagus. A biopsy was performed of the mid-esop hagus using cold forceps. Sample sent for histology. STOMACH: The stomach was normal. DUODENUM: The duodenum was normal. SPECIMENS REMOVED: Yes ADVERSE EVENTS: There were no complications. POSTOPERATIVE DIAGNOSIS: 1. There was a stricture with an inner diameter of 9mm; Using a TTS-bal loon the stricture was dilated up to 10mm; The balloon was held inflated for 60 seconds; biopsy was performed 2. LA grade C esophagitis 3. The stomach was normal 4. The duodenum was normal RECOMMENDATIONS: 1. Await biopsy results 2. Full liquid diet and advance to mechanical soft as tolerated Continue PPI PO BID Repeat EGD in 2 weeks as outpatient with Dr. Mcintosh for serial dilation REPEAT EXAM: Nav Burnette MD eSigned: Nav Burnette MD 06/28/2019 9:05 AM cc: PATIENT NAME: Patrice Zamorano MR#: [id number]
[2019-06-28] MEDS: NEURONTIN PO SCH (10:10)
[2019-06-28] MEDS: ASPIRIN PO SCH (10:10)
[2019-06-28] MEDS: MIRALAX PO SCH (10:11)
[2019-06-28] MEDS: PROTONIX IV SCH (10:11)
[2019-06-28] MEDS: COLACE PO SCH (10:11)
[2019-06-28] MEDS: NORCO-10 PO PRN (10:11)
[2019-06-28] MEDS: SYNTHROID PO SCH (10:13)
--- NOTE | 2019-06-28 12:01 | Diag Imaging Result Doc PS360 ---
MRI LUMBAR SPINE W/O CONTRAST - 06/28/2019 INDICATION: radiculopathy COMPARISON: 05/26/2012 FINDINGS: Alignment is anatomic. There are new signal hypointensities in the L1 and L2 vertebral bodies. This is compatible with vertebral plasty cement. No bone marrow edema. No acute fracture or subluxation. The conus is seen at T12-L1 and appears normal. Stable minor disc bulges at T12-L1, L1-L2, L2-L3, and L5-S1. No central canal stenosis. No significant neural foraminal stenosis. IMPRESSION: No acute abnormality. Multiple bulging discs in the lumbar spine. Electronically signed by Presley Turner 06/28/2019 11:59 AM
[2019-06-28 12:41] VITALS: BP 114/72
[2019-06-28] MEDS ORDERED: PNEUMOVAX 23 IM ONE (13:41)
--- NOTE | 2019-07-09 07:21 | DISCHARGE SUMMARY ---
ADMISSION DATE: 06/24/2019 DISCHARGE DATE: 06/28/2019 FINAL DISCHARGE DIAGNOSES: 1. Atypical chest pain. 2. Chronic constipation. 3. Multiple lumbar spine bulging disks. 4. Obesity. 5. Hypertension. 6. Hypothyroidism. 7. Diabetes mellitus type 2. CONSULTATIONS: GI consultation with Dr. Mcintosh. PROCEDURES: Esophagogastroduodenoscopy which revealed esophagitis and stricture that was dilated. HOSPITAL COURSE: Mr. Zamorano is a 58-year-old male with a history of chronic back pain secondary to multiple bulging disks, hypertension and diabetes who presented to the ER with a chief complaint of chest pain. The patient was admitted to the hospitalist service, and serial cardiac enzymes were obtained. The cardiac enzymes were noted to be negative. The patient was also seen by the flag signaler, and a stress test was ordered that was noted to be normal. The patient started to complain of abdominal pain, and was noted to be constipated. He was started on laxative therapy, but there was concern about reflux disease so GI was consulted. The patient was taken for an EGD that revealed esophagitis and an esophageal stricture that was dilated. The patient also complained of persistent lower back pain that he states was chronic. An MRI of lumbar spine was done that revealed multiple bulging disks in the lumbar spine. The patient continued to improve clinically, and was ultimately cleared for discharge home. DISCHARGE MEDICATIONS: 1. Omeprazole 40 mg oral twice a day. 2. Metformin 500 mg oral daily. 3. [place] 10/325 one tab oral twice a day. 4. Gabapentin 300 mg oral twice a day. 5. Synthroid 137 mics oral daily. 6. Methocarbamol 5500 mg oral every 8 hours p.r.n. for pain. 7. Metoprolol/hydrochlorothiazide 1 tablet oral daily. 8. Calcium 500 mg oral daily. DISCHARGE DIET: 1800 ADA diet. ACTIVITY: As tolerated. FOLLOWUP INSTRUCTIONS: The patient will need to follow up with Dr. Driver in 1 to 2 weeks. The patient will also need to follow up with Dr. Mcintosh in 2 weeks. cc: Jailene Rose MD
== END 2019-06-28 14:41 | disposition home or self-care (01) | DRG 313 ==
LOC: ED 11:50 → 3N 16:35
PROVIDERS: ATTEND Internal Medicine

== ENCOUNTER 2019-07-03 16:15 | Observation (INO) ==
[2019-07-03 17:19] LABS: BASO# 0.01 X1000 (0.0-0.2); BASO% 0.1 % (0.0-0.8); EOS# 0.14 X1000 (0.0-0.7); EOS% 1.9 % (0.0-10.0); HEMATOCRIT 34.7 % (42.0-52.0); HEMOGLOBIN 11.3 g/dL (14.0-18.0); IMM GRAN# 0.03 X1000 (0.0-0.04); IMM GRAN% 0.4 % (0.0-0.5); LYMPH# 1.54 X1000 (1.2-3.4); LYMPH% 21.4 % (20.5-51.1); MCH 28.2 PG (27-31); MCHC 32.6 g/dL (33-37); MCV 86.5 FL (81-99); MONO# 0.64 X1000 (0.11-0.59); MONO% 8.9 % (1.7-9.3); MPV 10.3 FL (7.4-10.4); NEUT# 4.82 X1000 (1.4-6.5); NEUT% 67.3 % (42.2-75.2); PLT 307 X1000 (130-400); RBC 4.01 XMIL (4.7-6.1); RDW 13.8 % (11.5-14.5); WBC 7.18 X1000 (4.8-10.8)
[2019-07-03 17:38] LABS: CREATININE 2.2 mg/dL (0.7-1.2); POTASSIUM 4.2 mmol/L (3.5-5.1)
[2019-07-03 17:39] LABS: CALCIUM 8.8 mg/dL (8.8-10.2); TOTAL BILIRUBIN 0.2 mg/dL (0.20-1.00); TOTAL PROTEIN 6.8 g/dL (6.3-8.3)
--- NOTE | 2019-07-03 18:13 | Diag Imaging Result Doc PS360 ---
EXAM: CHEST-2 VIEWS INDICATION: hypotensive/weakness TECHNIQUE: 2 views COMPARISON: 06/25/2019 FINDINGS: The lungs are grossly clear. There is no discrete pleural fluid collection or pneumothorax. The cardiomediastinal silhouette and central vasculature are grossly unremarkable. IMPRESSION: No evidence of acute pathology by plain radiograph. Electronically signed by Joaquín Deng 07/03/2019 6:11 PM
[2019-07-03] MEDS ORDERED: NS 1,000 ML IV ONE ×3 (18:18→23:46)
[2019-07-03] MEDS ORDERED: ZOFRAN IV PRN (18:25)
--- NOTE | 2019-07-03 18:30 | PROVIDER DOCUMENTATION ---
This chart was entered by Maricarmen Palomino Scribe, acting as scribe for Wero Richey MD. HPI-General Adult - General Chief Complaint: Weakness Stated Complaint: IRREGULAR BP Time Seen by Provider: 07/03/19 16:58 Source: patient Allergies/Adverse Reactions: Patient Allergies Allergy/AdvReac Type Severity Reaction Status Date / Time No Known Allergies Allergy Verified 06/14/17 11:58 Home Medications: Home Medication List Medication Instructions Recorded Confirmed Last Taken Type Ciprofloxacin 0.3% Ophth Soln 2 drop BOTH EARS TID #1 bottle 04/17/16 Unknown Rx [Ciloxan Ophth Soln] Hydrocodone/Acetaminophen [[place] 10 mg PO BID 04/17/16 06/24/19 Unknown History 10-325 Tablet] Metformin [Glucophage] 500 mg PO DAILY 04/17/16 06/24/19 Unknown History Calcium 500 mg PO DAILY 06/24/19 06/24/19 Unknown History Gabapentin 300 mg PO BID 06/24/19 06/24/19 Unknown History Levothyroxine [Synthroid] 137 mcg PO DAILY 06/24/19 06/24/19 Unknown History Methocarbamol 500 mg PO Q8H PRN PRN 06/24/19 06/24/19 Unknown History Metoprolol Succinate/Hctz 100 mg PO DAILY 06/24/19 06/24/19 Unknown History [Metoprolol ER-Hctz 100-12.5 mg] Omeprazole 40 mg PO BID #60 capsule. 06/28/19 Unknown Rx - History of Present Illness -Gen Adult Nature of Presenting Problems: pt is 58/M presenting to ED w/ increasing weakness and low blood pressure at home, 71/52 was reported. 94/52 in ED. Pt sts that he is on 3 BP medications at home, but has not taken them yet today because he takes them at night. Pt was released from hospital 5 days ago. He was admitted for CP and n/v. DX w/ colon infection, esophogitis and narrowed esophogus. 10cm obstruction was removed. Pt sts that he has been able to tolerate liquids only since release. He is scheduled to see Dr. Hartley and get bi-weekly stretching of esophogus. Location of Pain/Injury: reports: generalized Pain Radiation: reports: no radiation Quality of Pain: reports: none Severity: reports: moderate Onset/Duration: reports: last night Timing: reports: still present Context/Activities at Onset: reports: none Modifying Factors: improves with: nothing Associated Symptoms: reports: dizziness, fatigue, weakness. denies: back/neck pain, chest pain, fever/chills, nausea, shortness of breath, vomiting Similar Symptoms Previously?: No Recently seen or treated by another doctor?: No Review of Systems - Adult - REVIEW OF SYSTEMS - ADULT Constitutional: reports: no symptoms reported. denies: chills, fever Eyes: reports: no symptoms reported Ears, Nose, Mouth & Throat: reports: no symptoms reported Cardiovascular: reports: no symptoms reported. denies: chest pain Respiratory: reports: no symptoms reported. denies: cough, shortness of breath, wheezing Gastrointestinal: denies: abdominal pain, diarrhea, nausea, vomiting Genitourinary: reports: no symptoms reported Musculoskeletal: reports: no symptoms reported Integumentary: reports: no symptoms reported Neurological: reports: dizziness/vertigo. denies: headache/migraines, slurred speech, syncope Psychiatric: reports: no symptoms reported Endocrine: reports: no symptoms reported Hematologic/Lymphatic: reports: no symptoms reported Allergic/Immunologic: reports: no symptoms reported All Other Systems: Reviewed and Negative Past History - Adult - PAST MEDICAL HISTORY-ADULT Review of Records: reports: Old Records Reviewed, Nursing Assessment Review, Medications Reviewed, Social history reviewed & non-contributory. Major Childhood Illnesses: reports: denies history Cardiovascular: reports: HTN Endocrine/Immune: reports: Diabetes, thyroid disorder Other Conditions: reports: deaf/hard of hearing - PRIOR SURGERIES/PROCEDURES Surgical/Procedure History: reports: none - IMMUNIZATION STATUS Childhood Immunizations: See Nurse Assessment Flu Vaccine: See Nurse Assessment - SOCIAL HISTORY Smoking: cigarettes, less than 1 pack/day Substance Use: none/never Alcohol Use Frequency: never Living Situation: family Physical Exam-General - PHYSICAL EXAM-ADULT Initial Vital Signs Reviewed: Yes - CONSTITUTIONAL General Appearance: appears well, alert, no apparent distress - EYES Eyes: PERRL/EOMI, pink conjunctivae - HEAD, EARS, NOSE, MOUTH & THROAT HENMT: moist mucous membranes, normal ENT inspection, TMs normal - NECK Neck: non-tender, full range of motion, supple, normal inspection - RESPIRATORY Respiratory: lungs clear - CARDIOVASCULAR Cardiovascular: regular rate, rhythm - GASTROINTESTINAL (ABDOMEN) Abdominal Exam: normal bowel sounds, non tender, soft - LYMPHATIC Lymphatic: no adenopathy - MUSCULOSKELETAL Back Exam: normal inspection Extremity: normal range of motion, non-tender, normal gait, normal inspection - SKIN Integumentary: normal color, warm/dry - NEUROLOGIC Neurologic: grossly normal - PSYCHIATRIC Psych/Mental Status: normal mood/affect, normal thought content, normal thought process, oriented x 3 Progress - PLAN OF CARE/RESULTS Progress/Plan/Lab Results: Vital Signs - 8 hr 07/03/19 16:27 07/03/19 17:12 Temperature 98.0 F Pulse Rate 95 H 92 H Respiratory Rate 16 18 Blood Pressure 80/56 102/58 O2 Sat by Pulse Oximetry 98 96 Laboratory Results - last 24 hr 07/03/19 07/03/19 07/03/19 17:00 17:00 17:00 WBC 7.18 RBC 4.01 L Hgb 11.3 L Hct 34.7 L MCV 86.5 MCH 28.2 MCHC 32.6 L RDW Std Deviation 13.8 Plt Count 307 MPV 10.3 Immature Gran % (Auto) 0.4 Neut % (Auto) 67.3 Lymph % (Auto) 21.4 [place] % (Auto) 8.9 Eos % (Auto) 1.9 Baso % (Auto) 0.1 Immature Gran # (Auto) 0.03 Neut # (Auto) 4.82 Lymph # (Auto) 1.54 [place] # (Auto) 0.64 H Eos # (Auto) 0.14 Baso # (Auto) 0.01 Sodium Potassium Chloride Carbon Dioxide Anion Gap BUN Creatinine Estimated GFR/1.73 m2 BUN/Creatinine Ratio Glucose Calculated Osmolality Calcium Total Bilirubin AST ALT Alkaline Phosphatase Creatine Kinase 97 Troponin T < 0.010 Total Protein Albumin Globulin Albumin/Globulin Ratio 07/03/19 17:00 WBC RBC Hgb Hct MCV MCH MCHC RDW Std Deviation Plt Count MPV Immature Gran % (Auto) Neut % (Auto) Lymph % (Auto) [place] % (Auto) Eos % (Auto) Baso % (Auto) Immature Gran # (Auto) Neut # (Auto) Lymph # (Auto) [place] # (Auto) Eos # (Auto) Baso # (Auto) Sodium 135 L Potassium 4.2 Chloride 94 L Carbon Dioxide 23 L Anion Gap 18 BUN 37 H Creatinine 2.2 H Estimated GFR/1.73 m2 31 BUN/Creatinine Ratio 17 Glucose 82 Calculated Osmolality 278 Calcium 8.8 Total Bilirubin 0.20 AST 17 ALT 14 Alkaline Phosphatase 70 Creatine Kinase Troponin T Total Protein 6.8 Albumin 4.0 Globulin 3.0 Albumin/Globulin Ratio 1.0 Orders Category Date Time Status Nursing- Obtain EKG ONCE Care 07/03/19 16:31 Active Orthostatic Vital Signs NOW Care 07/03/19 18:18 Active Saline Loc NOW Care 07/03/19 16:31 Active CHEST-2 VIEWS [RAD] Stat Exams 07/03/19 16:31 Completed CBC WITH DIFF [HEME] Stat Lab 07/03/19 17:00 Completed CK PROFILE [SP CHEM] Stat Lab 07/03/19 17:00 Completed CK PROFILE [SP CHEM] Stat Lab 07/03/19 18:19 Ordered COMPREHENSIVE METABOLIC PANEL [CHEM] Stat Lab 07/03/19 17:00 Completed TROPONIN T Stat Lab 07/03/19 17:00 Completed 0.9% Sodium Chloride Inj [Ns] 1,000 ml Med 07/03/19 18:18 Active IV 999 mls/hr EKG [EKG] Stat Ther 07/03/19 16:31 Ordered Result Diagrams: 07/03/19 17:00 07/03/19 17:00 - EKG 1 Time of EKG reading by physician:: 17:19 EKG Read and Signed by:: Nav Goodwin EKG Interpretation (*Must complete 3 of following elements*): Normal Rate: 90 Rhythm: NSR - XRAY 1 XRAY: Bilateral XRAY Study: Chest - CONSULTS/PCP/HOSPITALIST Notification #1 *Consult/PCP/Hospitalist*: Dr. Driver Time Discussed: 18:20 Reason/Comments: transfer to [facility] Consult Disposition: Admit #2 Consult: Dr. Freeman hospitalist Time Discussed: 18:15 Reason/Comments: recommend calling Dr. Driver Departure - Departure Date of Disposition Decision: 07/03/19 Time of Disposition Decision: 18:31 DIAGNOSIS: Acute kidney injury Hypotension Qualifiers: Hypotension type: orthostatic hypotension Qualified Code(s): I95.1 - Orthost atic hypotension Disposition: ADMITTED INPATIENT 09 Certified Medical Emergency: Emergent Condition: Stable Referrals and Follow-Ups: Ash Driver MD [Primary Care Provider] - - Critical Care Note This patient required my direct & personal management of CC.: No Attestation - Physician/ LILLIE Attestation Patient care was provided by Advanced Practice Provider:: No The physician spent face to face time with patient:: Yes Advanced Practice Provider documentation review:: Supervising physician onsite and consulted in the evaluation and care of this patient. The physician did have a face to face encounter with the patient. This chart was documented by the indicated scribe, (Maricarmen Palomino, Scribe) and accurately reflects the services I performed and decisions made by me, Wero Richey MD, as attested by the provider's signature.
--- NOTE | 2019-07-03 19:06 | EKG Report ---
Test Performed on : 07/03/2019 5:19:36 PM Test Reason : hypotensive Blood Pressure : / mmHG Vent. Rate : 090 BPM Atrial Rate : 090 BPM P-R Int : 134 ms QRS Dur : 092 ms QT Int : 352 ms P-R-T Axes : 057 021 029 degrees QTc Int : 430 ms Normal sinus rhythm. Normal ECG When compared with ECG of 25-JUN-2019 06:36, No significant change was found Unconfirmed Result
[2019-07-03] MEDS: NORCO-10 PO PRN (23:34)
[2019-07-03] MEDS ORDERED: ROBAXIN PO PRN (23:44)
--- NOTE | 2019-07-04 03:51 | HISTORY AND PHYSICAL ---
CHIEF COMPLAINT: Generalized weakness. HISTORY OF PRESENT ILLNESS: The patient is an 58-year-old male who actually was just in [facility] for a different reason. He had gone home and had actually been feeling well until approximately 2 days ago. Since then he has been feeling more lightheaded and dizzy. His noted earlier today that he was lightheaded and almost passed out. She checked his blood pressure and it was 71/50. They brought him to the ER where it was again checked at 94/52. He has been on 3 blood pressure medications at home, but has not actually taken them today because his blood pressure was low last night as well as this morning. He was recently diagnosed with a colon infection, esophagitis and a narrowed esophagus, a 10-cm obstruction was removed. He has really only been drinking liquids since his release. He was scheduled to see Dr. Mcintosh next week to get stretching of his esophagus. PAST MEDICAL HISTORY: Hypertension, recent esophagitis, dysphagia, esophageal strictures, diabetes, hypothyroidism. He has poor hearing, chronic tobacco abuse. SOCIAL HISTORY: He is . He stopped smoking approximately a year ago. He does not drink or use other illicit substances. ALLERGIES: No known drug allergies. MEDICATIONS: Calcium, gabapentin, hydrochlorothiazide, [place], Synthroid, Glucophage, methocarbamol, metoprolol, Prilosec. FAMILY HISTORY: Noncontributory. PHYSICAL EXAMINATION: VITAL SIGNS: Temperature 98 degrees, pulse 95, blood pressure 80/56 prior to fluid boluses, currently 104/60. Weight is 204 pounds, which is down from his 214 pounds with his admission in early June. GENERAL: The patient is awake and alert. He is in no current respiratory distress. Very pleasant to talk with, lying flatly in bed. HEENT: Normocephalic. NECK: Supple. CARDIOVASCULAR: Regular rate. No murmurs. CHEST: Clear and nonlabored. No wheezing. ABDOMEN: Soft, nondistended, nontender. EXTREMITIES: Moves all extremities. LABORATORY DATA: H H is 11 and 34, creatinine 2.2, BUN 37. ASSESSMENT: 1. Acute renal failure. Creatinine is 2.2, was actually 0.9 five days ago when he left the hospital. 2. Volume depletion. 3. Hypotension with syncope. 4. Known history of hypertension. 5. Diabetes. 6. Continued weight loss. 7. Esophageal strictures. PLAN: We will admit the patient to the hospital. We will consult GI as he has a planned dilatation of his esophagus in a day or two. We will place him on IV fluids. We will obviously hold all of his medications that could drop his blood pressure. We will follow his blood sugars, recheck his labs in the morning. Further orders as needed. cc: Ash Driver MD
[2019-07-04] MEDS ORDERED: SYNTHROID PO SCH (07:00)
[2019-07-04 07:08] LABS: BASO# 0.01 X1000 (0.0-0.2); BASO% 0.2 % (0.0-0.8); EOS# 0.18 X1000 (0.0-0.7); EOS% 3.4 % (0.0-10.0); HEMATOCRIT 33.9 % (42.0-52.0); HEMOGLOBIN 11.3 g/dL (14.0-18.0); IMM GRAN# 0.03 X1000 (0.0-0.04); IMM GRAN% 0.6 % (0.0-0.5); LYMPH% 18.7 % (20.5-51.1); MCH 28.7 PG (27-31); MCHC 33.3 g/dL (33-37); MONO# 0.56 X1000 (0.11-0.59); MONO% 10.4 % (1.7-9.3); MPV 10.2 FL (7.4-10.4); NEUT# 3.58 X1000 (1.4-6.5); NEUT% 66.7 % (42.2-75.2); PLT 268 X1000 (130-400); RBC 3.94 XMIL (4.7-6.1); RDW 13.8 % (11.5-14.5); WBC 5.36 X1000 (4.8-10.8)
[2019-07-04 07:42] LABS: AGAP 14; BUN 21 mg/dL (8-22); CALCIUM 8.6 mg/dL (8.8-10.2); CHLORIDE 99 mmol/L (98-107); COSMO 271; CREATININE 0.9 mg/dL (0.7-1.2); ESTIMATED GFR > 60; GLUCOSE 90 mg/dL (70-104); POTASSIUM 3.7 mmol/L (3.5-5.1); SODIUM 134 mmol/L (136-145); TCO2 21 mmol/L (25-35)
[2019-07-04] MEDS ORDERED: CALTRATE 600 PO SCH (09:00)
[2019-07-04] MEDS ORDERED: PRILOSEC PO SCH (09:00)
[2019-07-04] MEDS ORDERED: NEURONTIN PO SCH (09:00)
[2019-07-04] MEDS ORDERED: TOPROL XL PO SCH (09:00)
[2019-07-04] MEDS: NORCO-10 PO PRN (09:59)
[2019-07-04 15:05] VITALS: BP 115/68
--- NOTE | 2019-07-04 17:18 | DISCHARGE SUMMARY ---
ADMISSION DATE: 07/03/2019 DISCHARGE DATE: 07/04/2019 DISCHARGE DIAGNOSIS: Acute kidney injury associated with dehydration. HOSPITAL COURSE: Briefly, this is a 58-year-old male who came in for dizziness. He was admitted not too long ago but then here he checked his blood pressure, it was 71/50, 94/52. He had been on blood pressure medications previously. He was placed on IV fluids with a normal kidney function, not too long ago. The following day after volume resuscitation, creatinine was down to 0.9, blood pressure 115/68. I adjusted his blood pressure medicines, which included just switching him to Toprol-XL 50 and taking him off the Toprol hydrochlorothiazide. He was also placed on Prilosec 40 b.i.d., Synthroid 137 daily, [place], methocarbamol, metformin 500 daily, gabapentin 300 b.i.d., and calcium 500 daily. Recommend follow up with Dr. Driver next week and keep his other appointments that have been made recently. cc: Sedrick Harman MD
== END 2019-07-04 16:47 | disposition home or self-care (01) ==
LOC: P.ED 16:15 → P.EDIPHOLD 16:15 → 3N 16:15 → SUATTDRO 16:16
PROVIDERS: ATTEND Internal Medicine

== ENCOUNTER 2019-07-10 16:08 | Inpatient (IN) ==
--- NOTE | 2019-07-10 17:56 | Diag Imaging Result Doc PS360 ---
CHEST-PORTABLE - 07/10/2019 INDICATION: abdominal pain COMPARISON: 07/03/2019 FINDINGS: The lungs are normally expanded and clear. Heart size and mediastinal contours are normal. No pneumothorax or pleural effusion. IMPRESSION: Negative exam. Electronically signed by Presley Turner 07/10/2019 5:54 PM
[2019-07-10] MEDS ORDERED: SODIUM CHLORIDE 0.9% INJ ONE (18:28)
[2019-07-10] MEDS ORDERED: DEMEROL IV ONE (18:28)
[2019-07-10] MEDS ORDERED: PHENERGAN IV ONE (18:28)
[2019-07-10 19:39] LABS: URINE SOURCE CLEAN CATCH
[2019-07-10 19:45] LABS: AGAP 20; ALB/GLOB RATIO 1.5; ALBUMIN 4.1 g/dL (3.5-5.0); ALKALINE PHOSPHATASE 54 U/L (32-122); BUN 17 mg/dL (8-22); CHLORIDE 92 mmol/L (98-107); CK PROFILE 62 U/L (24-204); COSMO 269; CREATININE 0.9 mg/dL (0.7-1.2); ESTIMATED GFR > 60; GLUCOSE 81 mg/dL (70-104); GOT 23 U/L (10-34); GPT 12 U/L (10-44); POTASSIUM 4.4 mmol/L (3.5-5.1); SODIUM 134 mmol/L (136-145); TCO2 22 mmol/L (25-35); TOTAL BILIRUBIN 0.27 mg/dL (0.20-1.00); TOTAL PROTEIN 6.8 g/dL (6.3-8.3)
[2019-07-10 19:51] LABS: BILIRUBIN URINE NEGATIVE (NEGATIVE); BLOOD URINE TRACE (NEGATIVE); COLOR YELLOW; GLUCOSE URINE NEGATIVE (NEGATIVE); KETONE URINE 20 mg/dL (NEGATIVE); LEUKOCYTES URINE NEGATIVE (NEGATIVE); NITRITE URINE NEGATIVE (NEGATIVE); PH URINE 5.5; PROTEIN URINE TRACE mg/dL (NEGATIVE); SP GRAVITY URINE 1.025; TURBIDITY URINE CLEAR (CLEAR); UROBILINOGEN URINE NORMAL (NORMAL)
[2019-07-10 19:52] LABS: UR EPITHELIAL CELLS <10 /HPF (<10); URINE BACTERIA NEGATIVE /HPF; URINE RBC <10 /HPF (<10); URINE WBC <10 /HPF (<10)
[2019-07-10 20:14] LABS: BASO# 0.02 X1000 (0.0-0.2); BASO% 0.3 % (0.0-0.8); EOS# 0.12 X1000 (0.0-0.7); EOS% 1.9 % (0.0-10.0); HEMATOCRIT 33.7 % (42.0-52.0); HEMOGLOBIN 11.8 g/dL (14.0-18.0); IMM GRAN# 0.03 X1000 (0.0-0.04); IMM GRAN% 0.5 % (0.0-0.5); LYMPH# 1.57 X1000 (1.2-3.4); LYMPH% 24.9 % (20.5-51.1); MCH 29.2 PG (27-31); MCV 83.4 FL (81-99); MONO# 0.52 X1000 (0.11-0.59); MONO% 8.2 % (1.7-9.3); MPV 10.4 FL (7.4-10.4); NEUT# 4.05 X1000 (1.4-6.5); NEUT% 64.2 % (42.2-75.2); PLT 294 X1000 (130-400); RBC 4.04 XMIL (4.7-6.1); RDW 13.8 % (11.5-14.5); WBC 6.31 X1000 (4.8-10.8)
--- NOTE | 2019-07-10 20:51 | Diag Imaging Result Doc PS360 ---
CT ABD/PELVIS W/IV CONT ONLY - 07/10/2019 INDICATION: abdominal pain COMPARISON: 06/26/2019 FINDINGS: The lung bases are clear and the heart size is normal. There is stable circumferential wall thickening of the distal esophagus suggesting reflux esophagitis. Stable mild, nonspecific retroperitoneal lymphadenopathy. Stable nonobstructing bilateral renal stones. Other abdominal organs are all normal. No bowel obstruction or inflammation. No significant constipation. Urinary bladder, prostate, and rectum are normal. Stable lumbar spine compression fractures with vertebroplasty cement inside. No acute bony lesions. IMPRESSION: No change from prior. Chronic reflux esophagitis. Bilateral nonobstructing renal stones. Indeterminate retroperitoneal lymphadenopathy. This exam was performed using automated exposure control, adjustment of mA or kV according to patient size, and/or use of iterative reconstruction technique Electronically signed by Presley Turner 07/10/2019 8:49 PM
[2019-07-10] MEDS ORDERED: ZOFRAN IV ONE (22:50)
[2019-07-10] MEDS ORDERED: MORPHINE IV ONE (22:50)
--- NOTE | 2019-07-11 01:34 | HISTORY AND PHYSICAL ---
CHIEF COMPLAINT: Lower abdominal pain and dysphagia. HISTORY OF PRESENT ILLNESS: The patient is a 58-year-old male with a history of severe esophagitis, no esophageal strictures, intermittent dysphagia. He comes in complaining primarily of left lower abdominal pain almost suprapubic really that has been going on since this morning. It is sharp, waxes and wanes, nothing really makes it better or worse. He has had kidney stones in the past. On evaluation in the ED he was again found to have a kidney stone which was not obstructive. The patient also complaining of worsening of his chronic dysphagia. He has not really had any vomiting but significant nausea, and has decreased his p.o. intake because of it. He was scheduled to have an EGD in the next week or so to reassess this. He denies fever or chills. He had some loose stool yesterday but none today. As above no vomiting. He continues to smoke approximately a half a pack per day. He is admitted for further evaluation and treatment of these as well as incidentally found D-dimer of almost 18. The patient denying any respiratory symptoms. On further questioning he does say that both his lower legs have been tender right greater than left. He has not noted any swelling but does have a little bit on exam as below. REVIEW OF SYSTEMS: Twelve point review of systems was negative except as per HPI. ALLERGIES: No known drug allergies. PAST MEDICAL HISTORY: Hypertension, diabetes, hypothyroidism, GERD, tobacco abuse, esophagitis, esophageal stricture. PAST SURGICAL HISTORY: Appendectomy, bilateral cataract surgery. SOCIAL HISTORY: A 1/2 pack per day smoker, had quit for a little while, but smoking again now. Denies alcohol and illicit drug use. FAMILY HISTORY: Father with heart failure. Mother alive with diabetes. LABORATORY DATA: D-dimer is 17.85. WBC is 6.3, hemoglobin 11.8, hematocrit 33.7, platelets 294,000. Sodium 134, potassium 4.4, BUN 17, creatinine 0.9, glucose 81, bilirubin 0.27, AST 23, ALT 12, alkaline phosphatase 54. Troponin negative. Urinalysis with ketones, trace blood, protein in blood. IMAGING: CT of abdomen and pelvis with chronic reflux esophagitis, nonobstructing renal stones and indeterminate retroperitoneal lymphadenopathy. VITAL SIGNS: T-max 98.2 degrees, pulse 105, respirations 19, blood pressure 109/72 O2 saturation 97% on room air. PHYSICAL EXAMINATION: GENERAL: No acute distress. VITAL SIGNS: As above. HEENT: Normocephalic, atraumatic. Slightly dry mucous membranes. No cervical adenopathy. CARDIOVASCULAR: Regular rate and rhythm at the time of my exam. No murmurs noted. PULMONARY: Clear to auscultation bilaterally. ABDOMEN: Moderate epigastric tenderness without rebound or guarding. Lower abdomen benign. Bowel sounds positive. EXTREMITIES: Peripheral pulses intact. No clubbing or cyanosis. Trace lower extremity edema bilaterally slightly more on the right. Minimal mid right calf tenderness without palpable cord. NEUROLOGIC: The patient with poor hearing which is chronic. Cranial nerves otherwise grossly intact. No focal deficits. PSYCHIATRIC: Normal mood and affect. Awake, alert and oriented x3. SKIN: No new rashes or lesions identified. ASSESSMENT AND PLAN: 1. Elevated D-dimer, right calf pain. Swelling is pretty minimal and no respiratory complaints, but there is some concern for clot. We will go ahead and give him a dose of therapeutic Lovenox tonight pending further studies. We will go ahead and ultrasound both lower extremities, although the right appears to be more likely to be involved. Cannot get a CTA as the patient received a CT of the abdomen pelvis with contrast not long ago in the ED. So we will plan on getting a V/Q scan in the morning to further assess. 2. Abdominal pain, kidney stones. CT showing kidney stones is likely the source of the patient's pain. No evidence of obstruction or urinary tract infection, so we will treat symptomatically. 3. Dysphagia, esophagitis, esophageal stricture. The patient with known esophageal strictures that has been dilated previously. May need dilation again as the patient has had slowly increasing symptoms again. We will go ahead and consult GI and see if they want to assess this while he is here versus as an outpatient. Continue PPI. 4. Hypertension. Continue home benazepril. We will hold home hydrochlorothiazide given poor p.o. intake. Monitor. 5. Diabetes. A1c pending. We will place on sliding scale insulin and monitor. 6. Hypothyroidism. Continue home Synthroid. 7. Gastroesophageal reflux disease. Continue PPI as above. 8. Tobacco abuse. The patient offered nicotine patch. 9. Anemia, mild, asymptomatic, likely anemia of chronic disease. No need for acute intervention at this time. 10. Hyponatremia, minimal. We will gently hydrate and monitor. Under physical exam neurologic please change to back to procedure. 11. Lymphadenopathy, nonspecific and has not really changed from previous scans, but given elevated D-dimer if evaluation for clot is unremarkable then may need further evaluation.
[2019-07-11] MEDS ORDERED: NICODERM PATCH TD PRN (01:54)
[2019-07-11] MEDS ORDERED: LOVENOX SUBQ SCH (01:54)
[2019-07-11] MEDS ORDERED: PHENERGAN PR PRN (01:54)
[2019-07-11] MEDS: ZOFRAN IV PRN ×3 (02:46→15:24)
[2019-07-11] MEDS: DILAUDID IV PRN ×3 (02:46→15:22)
[2019-07-11] MEDS: NORCO-10 PO PRN ×3 (04:32→22:06)
[2019-07-11] MEDS: NS 1,000 ML IV SCH ×2 (04:39→18:09)
[2019-07-11] MEDS: SYNTHROID PO SCH (06:34)
[2019-07-11 07:14] LABS: BASO# 0.02 X1000 (0.0-0.2); BASO% 0.4 % (0.0-0.8); EOS# 0.14 X1000 (0.0-0.7); EOS% 2.5 % (0.0-10.0); HEMATOCRIT 33.8 % (42.0-52.0); HEMOGLOBIN 11.6 g/dL (14.0-18.0); LYMPH# 1.53 X1000 (1.2-3.4); LYMPH% 27.2 % (20.5-51.1); MCH 28.7 PG (27-31); MCHC 34.3 g/dL (33-37); MCV 83.7 FL (81-99); MONO# 0.54 X1000 (0.11-0.59); MONO% 9.6 % (1.7-9.3); MPV 10.7 FL (7.4-10.4); NEUT# 3.39 X1000 (1.4-6.5); NEUT% 60.3 % (42.2-75.2); PLT 292 X1000 (130-400); RBC 4.04 XMIL (4.7-6.1); RDW 13.9 % (11.5-14.5); WBC 5.62 X1000 (4.8-10.8)
[2019-07-11] MEDS: HUMALOG SUBQ SCH ×4 (07:25→21:15)
--- NOTE | 2019-07-11 08:03 | EKG Report ---
Test Performed on : 07/10/2019 4:22:37 PM Test Reason : ED. NO EKG ORDER FOR MUSE Blood Pressure : / mmHG Vent. Rate : 108 BPM Atrial Rate : 108 BPM P-R Int : 130 ms QRS Dur : 086 ms QT Int : 330 ms P-R-T Axes : 066 039 059 degrees QTc Int : 442 ms Sinus tachycardia. Otherwise normal ECG When compared with ECG of 08-JUL-2019 15:33, (Unconfirmed) No significant change was found Unconfirmed Result
[2019-07-11 08:05] LABS: AGAP 17; BUN 14 mg/dL (8-22); CALCIUM 8.5 mg/dL (8.8-10.2); CHLORIDE 89 mmol/L (98-107); COSMO 258; CREATININE 0.8 mg/dL (0.7-1.2); ESTIMATED GFR > 60; GLUCOSE 82 mg/dL (70-104); POTASSIUM 3.6 mmol/L (3.5-5.1); SODIUM 129 mmol/L (136-145); TCO2 23 mmol/L (25-35)
[2019-07-11] MEDS ORDERED: PRILOSEC PO SCH (09:00)
[2019-07-11] MEDS: FLOMAX PO SCH (09:26)
[2019-07-11] MEDS: NEURONTIN PO SCH ×2 (09:26→21:39)
[2019-07-11] MEDS: TOPROL XL PO SCH (09:26)
[2019-07-11] MEDS: LOTENSIN PO SCH (09:30)
--- NOTE | 2019-07-11 10:43 | Diag Imaging Result Doc PS360 ---
LUNG SCAN / VQ - 07/11/2019 INDICATION: markedly elevated dimer. eval for PTE TECHNIQUE: 38.9 mCi of DTPA was used for inhalation. 5.9 mCi of MAA was used for injection. COMPARISON: None FINDINGS: There is normal localization pattern of the radiotracer's. There is no evidence of pulmonary perfusion defect. IMPRESSION: Negative for pulmonary embolism. Electronically signed by Presley Turner 07/11/2019 10:41 AM
[2019-07-11] MEDS ORDERED: RAPAFLO PO SCH (14:15)
[2019-07-11] MEDS: BENTYL PO SCH ×2 (15:33→21:14)
[2019-07-11] MEDS: CARAFATE LIQUID PO SCH ×2 (15:33→21:14)
[2019-07-11] MEDS: SODIUM CHLORIDE 0.9% INJ SCH (15:36)
[2019-07-11] MEDS: PROTONIX IV SCH ×2 (15:36→22:30)
--- NOTE | 2019-07-11 15:41 | PROGRESS NOTE ---
DATE: 07/11/2019 SUBJECTIVE: This morning Ms. Zamorano refers to be doing fairly okay. Still has some pain especially to the left lower abdomen. OBJECTIVE: Vital signs: Blood pressure is 82/45, pulse is 75, respirations 20, temperature 97.7 degrees. The patient is saturating 97% on room air. General: Mr. Zamorano is a 58-year-old gentleman. He is in bed in no distress. HEENT: Mucosa is pink and moist. Anicteric. Acyanotic. Neck: Supple. Chest: Clear to auscultation. Cardiovascular: Regular rate and rhythm. Abdomen: Soft, minimally tender in the left flank to the lower abdomen. There was no CVA tenderness. Inguinal region is unremarkable. Extremities: No pedal edema. ASSOCIATE DOCTOR: Patient was awake, alert, and oriented. LABORATORY DATA: CBC is reviewed. Patient has mild normocytic anemia. Chemistry is also reviewed. Sodium is 129, potassium is 3.6, chloride is 89. IMAGING STUDIES: Revealed a CT scan of the abdomen and pelvis. Has chronic reflux esophagitis and bilateral nonobstructing renal stones. A V-Q scan is unremarkable and negative for pulmonary embolism. ASSESSMENT: 1. Symptomatic, nonobstructing bilateral nephrolithiasis, worse on the left. The patient is currently on pain management with adequate fluid hydration, and we will re-evaluate him in the morning. 2. Dysphagia secondary to esophagitis, questionable esophageal stricture. Patient is pending esophagogastroduodenoscopy tomorrow. 3. Hypertension controlled. 4. Diabetes mellitus. 5. Hypothyroidism. 6. Mild clinical volume depletion. Patient is on fluids. In general, Mr. Zamorano is doing a lot better. We are going to discontinue the therapeutic Lovenox since lung scan is unremarkable. The patient is also pending EGD tomorrow morning. cc: Ra Smith MD
--- NOTE | 2019-07-11 16:37 | GASTROENTEROLOGY CONSULTATION ---
DATE: 07/11/2019 REQUESTING PHYSICIAN: Dr. Smith. PRIMARY CARE DOCTOR: Dr. Ash Driver. REASON FOR CONSULTATION: Abdominal pain and dysphagia. HISTORY OF PRESENT ILLNESS: Mr. Zamorano is a 58-year-old male who was admitted on 07/10/2019 for worsening dysphagia and abdominal pain. According to the patient, he can barely take his pills. He can barely drink liquids. He has a history of esophagitis. He had an EGD done recently which showed esophagitis. The patient was supposed to follow up as an outpatient but his symptoms got worse and he was admitted. He also complains of abdominal pain in the periumbilical region and the lower abdomen. He had some diarrhea for 2 days which is now getting better. He denies noticing any blood in the stools. He denies any vomiting blood. Gastroenterology was consulted for further management. PAST MEDICAL HISTORY: Hypertension, diabetes, hypothyroidism, GERD, tobacco abuse, esophagitis, esophageal stricture. ALLERGIES: No known drug allergies. PAST SURGICAL HISTORY: Appendectomy, bilateral cataract surgery. SOCIAL HISTORY: He smokes a half a pack a day. He quit for a little while but now he is smoking. He denies any history of alcohol or illicit drug abuse. FAMILY HISTORY: Father with heart failure. Mother alive and has diabetes. REVIEW OF SYSTEMS: A 12 point review of systems is negative except as per HPI. MEDICATIONS: Reviewed in the EMR. PHYSICAL EXAMINATION: Vital signs: Temperature 97.9, pulse rate of 91, respiratory rate of 20, blood pressure 119/83, saturating 95% on room air. Body weight of 204 pounds, BMI 29.3 kg/m2. General Appearance: Moderately built, moderately nourished, lying in bed, in no acute distress. HEENT: Positive pallor. No icterus. Pupils equal, reactive to light. Neck: Supple. Abdomen: Discomfort in the periumbilical region. No rebound. No guarding. Extremities: No cyanosis or clubbing. Neurologic: He is alert, awake, oriented x3. Musculoskeletal: He also complains of discomfort in the lower back. LABS: Hemoglobin and hematocrit are 11.6 and 33.8, white count of 5.62, platelet count of 292,000. D-dimer of 16.8. Sodium 129, potassium 3.6, chloride of 89, bicarbonate 23, anion gap of 17, BUN of 14, creatinine 0.8, glucose of 82, calcium is 8.5. AST 23, ALT 12, alkaline phosphatase 54, total protein 6.8, albumin of 4.1. Lactate of 0.6. Urinalysis showing trace protein and trace blood, trace ketones. CT of the abdomen and pelvis done yesterday showed stable circumferential wall thickening of the distal esophagus suggesting reflux esophagitis. Stable mild nonspecific retroperitoneal lymphadenopathy. Stable nonobstructing bilateral renal stones. No significant constipation. Stable lumbar spine compression fractures with vertebroplasty cement inside. IMPRESSIONS: 1. Dysphagia. 2. Esophagitis. 3. Reflux disease. 4. Renal stones, bilateral, nonobstructing. 5. Abdominal pain. 6. Chronic back pain. 7. Lumbar arthritis. RECOMMENDATIONS: 1. We will start him on a clear liquid diet. We will start him on Protonix IV twice daily. As the patient is having difficulty taking his pills, we will start him on Carafate 1 g every 6 hours suspension. We will schedule him for an EGD tomorrow with Dr. Burnette. Risks benefits indications and alternatives were discussed with the patient and all questions were answered. 2. We will discontinue Prilosec orally as the patient is having difficulty with pills. He is on IV Dilaudid per primary team for chronic pain. 3. Hypothyroidism. He is on Synthroid. 4. Tobacco abuse. Patient counseled to quit smoking completely. He is on NicoDerm patch while is in the hospital. He is getting IV fluids as well. 5. Further recommendations to follow pending the hospital course. The above plan was discussed with the patient and all questions answered. Please call us with any further questions. cc: MD Ra Mcconnell MD Gregory S. Cheatham, MD [facility] NETWORKLuis
[2019-07-12] MEDS: CARAFATE LIQUID PO SCH ×4 (04:15→21:27)
[2019-07-12] MEDS: HUMALOG SUBQ SCH ×3 (06:24→17:30)
[2019-07-12] MEDS: SYNTHROID PO SCH (06:24)
[2019-07-12 07:06] LABS: HEMATOCRIT 32.5 % (42.0-52.0); MCH 29.3 PG (27-31); MCHC 33.8 g/dL (33-37); MCV 86.4 FL (81-99); MPV 10.3 FL (7.4-10.4); RBC 3.76 XMIL (4.7-6.1); RDW 14.2 % (11.5-14.5); WBC 4.86 X1000 (4.8-10.8)
[2019-07-12 07:40] LABS: AGAP 17; ALBUMIN 3.7 g/dL (3.5-5.0); BUN 10 mg/dL (8-22); CALCIUM 8.3 mg/dL (8.8-10.2); CHLORIDE 98 mmol/L (98-107); COSMO 272; CREATININE 0.7 mg/dL (0.7-1.2); ESTIMATED GFR > 60; GLUCOSE 83 mg/dL (70-104); POTASSIUM 3.6 mmol/L (3.5-5.1); SODIUM 137 mmol/L (136-145); TCO2 22 mmol/L (25-35)
[2019-07-12] MEDS: DILAUDID IV PRN ×2 (08:17→17:39)
[2019-07-12] MEDS ORDERED: XYLOCAINE-MPF 2% ONE (09:39)
[2019-07-12] MEDS ORDERED: DIPRIVAN 1% ONE (09:43)
--- NOTE | 2019-07-12 10:00 | ENDOSCOPY OPERATIVE NOTE ---
[facility] ENDOSCOPY OPERATIVE NOTE , PATIENT: Patrice Zamorano ADMISSION DATE: 07/12/2019 MR#: [id number] : 1960 [id number] EGD PROCEDURE REPORT PROCEDURE DATE: 07/12/2019 SURGEON: Nav Burnette MD STATUS: inpatient NEEDLE MOLDER: PREOPERATIVE DIAGNOSIS: The patient is a 58 yr old male here for an EGD due to dysphagia, pharyngeal -esophageal and abdominal pain. EGD on 06/28/2019 showed LA grade C esophagitis and esophageal stricture dilated with TTS dilator up to 10mm. Biopsies were negative for malignancy PROCEDURE PERFORMED: EGD w/ biopsy MEDICATIONS: Per Anesthesia TOPICAL ANESTHETIC: none CONSENT: The patient understands the risks and benefits of the procedure and understands that these r isks include, but are not limited to: sedation, allergic reaction, infection, perforation and/or bleeding. Alternative means of evaluation and treatment include, among others: physical exam, x-rays, and/or surgical intervention. The patient elects to proceed with this endoscopic procedure. HISORY AND PHYSICAL: 07/12/2019 function. Hand hygiene and appropriate measures for infection prevention was taken. After the risks, benefits and alternatives of the procedure were thoroughly explained, Informed consent was verified, confirmed and timeout was successfully executed by the treatment team. The patient was anesthetized with topical anesthesia and the CH39-x70 ([id number]) endoscope was introduced through the mouth and advanced to the second portion of the duoden um. Retroflexion was performed in the stomach and revealed no abnormalities. The gastroscope was then slowly withdraw n and removed. ESOPHAGUS: Dilated esophagus. There was a short stricture at the GE junction at 40cm from incisors. The diameter measures approximately 7mm and is 1-1.5 cm in length. The stricture was traversable with mild resist ance, which caused mucosal injury and mild bleeding. A biopsy was performed using cold forceps. Sample sent for histol ogy. STOMACH: The stomach was normal. DUODENUM: The duodenum was normal. SPECIMENS REMOVED: Yes ADVERSE EVENTS: There were no complications. POSTOPERATIVE DIAGNOSIS: ESOPHAGUS: Dilated esophagus. There was a short stricture at the GE junction at 40cm from incisors. The diameter measures approximately 7mm and is 1-1.5 cm in length. The stricture was traversable with mild resist ance, which caused mucosal injury and mild bleeding. A biopsy was performed using cold forceps. Sample sent for histol ogy. STOMACH: The stomach was normal. DUODENUM: The duodenum was normal. RECOMMENDATIONS: 1. Await biopsy results 2. Clear liquid diet Continue PPI BID Recommend repeat EGD in 2 weeks for dilation REPEAT EXAM: Return in 2 weeks for EGD. Nav Burnette MD eSigned: Nav Burnette MD 07/12/2019 10:02 AM Revised: 07/12/2019 10:02 AM cc: PATIENT NAME: Patrice Zamorano MR#: [id number]
[2019-07-12] MEDS: TOPROL XL PO SCH (10:37)
[2019-07-12] MEDS: NEURONTIN PO SCH ×2 (10:37→21:27)
[2019-07-12] MEDS: BENTYL PO SCH ×2 (10:37→21:27)
[2019-07-12] MEDS: LOTENSIN PO SCH (10:37)
[2019-07-12] MEDS: FLOMAX PO SCH (10:38)
[2019-07-12] MEDS: PROTONIX IV SCH ×2 (10:38→21:28)
[2019-07-12] MEDS: SODIUM CHLORIDE 0.9% INJ SCH ×2 (10:38→21:28)
[2019-07-12] MEDS: NORCO-10 PO PRN ×2 (10:41→21:26)
--- NOTE | 2019-07-12 15:37 | PROGRESS NOTE ---
DATE: 07/12/2019 SUBJECTIVE: This morning, Mr. Zamorano refers to be doing a lot better. She still has some soreness, but the pain is for the most part gone and he is tolerating his diet. He also underwent EGD today. OBJECTIVE: Vital signs: Blood pressure is 112/77, pulse of 77, respirations 20, temperature 97.8. General: Mr. Zamorano is a 58-year-old gentleman. He is in bed. No distress. Mucosa is pink and moist. Anicteric. Acyanotic. Neck: Supple. Chest: Good air entry bilateral. There are no crepitations. No rhonchi. Cardiovascular: Regular rate and rhythm. Abdomen: Soft, nontender. Minimal soreness especially to the left flank, but the according to him, it less painful then yesterday. Central Nervous System: The patient is awake, alert, and oriented. LABORATORY DATA: Mild normocytic anemia. Chemistry is completely within normal range. The GI reports shows some that there was a little short stricture at the GE junction which was dilated. Stomach and duodenum where normal. ASSESSMENT: 1. Symptomatic nonobstructive bilateral nephrolithiasis, worse on the left, improved. 2. Dysphagia secondary to esophageal stricture. This was dilated. 3. Hypertension controlled. 4. Diabetes mellitus. 5. Hypothyroidism. 6. Clinical volume depletion improved. This morning, Mr. Zamorano is doing better. We are going to advance his diet. If he tolerates it, I think we will be able to discharge him either today or 1st thing tomorrow. We are pending final recommendations from GI. cc: Ra Smith MD [facility]ITALLuis
[2019-07-12] MEDS: NS 1,000 ML IV SCH (17:38)
[2019-07-13] MEDS: HUMALOG SUBQ SCH ×2 (01:58→06:32)
[2019-07-13] MEDS: NS 1,000 ML IV SCH ×3 (03:54→10:57)
[2019-07-13] MEDS: CARAFATE LIQUID PO SCH ×2 (04:00→08:48)
[2019-07-13] MEDS: NORCO-10 PO PRN (05:51)
[2019-07-13] MEDS: SYNTHROID PO SCH (06:33)
[2019-07-13 08:13] VITALS: BP 108/75
[2019-07-13] MEDS: TOPROL XL PO SCH (08:48)
[2019-07-13] MEDS: LOTENSIN PO SCH (08:48)
[2019-07-13] MEDS: FLOMAX PO SCH (08:48)
[2019-07-13] MEDS: BENTYL PO SCH (08:48)
[2019-07-13] MEDS: NEURONTIN PO SCH (08:48)
[2019-07-13] MEDS: PROTONIX IV SCH ×2 (08:49→10:57)
--- NOTE | 2019-07-13 22:02 | PROVIDER PROGRESS NOTE ---
Progress Note S: No acute overnight events. Patient is tolerating full liquids without nausea, vomiting, or abdominal pain. O: Last Vital Signs Temp 98.3 F 07/13/19 08:13 Pulse 76 07/13/19 08:13 Resp 18 07/13/19 04:59 BP 108/75 07/13/19 08:13 Pulse Ox 96 07/13/19 08:13 Height 5 ft 10 in Weight 204 lb GEN: awake, alert, NAD HEENT: anicteric, MMM NECK: supple, no JVD CV: RRR, no murmurs PULM: CTAB, no wheezing ABD: soft NT/ND, NABS EXT: No cce NEURO: nonfocal EGD 07/12 ESOPHAGUS: Dilated esophagus. There was a short stricture at the GE junction at 40cm from incisors. The diameter measures approximately 7mm and is 1-1.5 cm in length. The stricture was traversable with mild resistance, which caused mucosal injury and mild bleeding. A biopsy was performed using cold forceps. Sample sent for histology. STOMACH: The stomach was normal. DUODENUM: The duodenum was normal. A/P: Mr. Patrice Zamorano is a 58 year old man who presented with abdominal pain, N/V, dysphagia. EGD yesterday showed dilated esophagus with benign stricture at the GEJ. Biopsies were obtained. Patient was instructed to stay on strict liquid diet and continue PPI PO BID and plan for repeat EGD as outpatient in 2 weeks. If he develops recurrent dysphagia to liquids, then he will likely need PEG tube placement. He will be discharged today. Follow-up in clinic in 1-2 weeks
--- NOTE | 2019-07-14 10:46 | DISCHARGE SUMMARY ---
ADMISSION DATE: 07/11/2019 DISCHARGE DATE: 07/13/2019 CONSULTATIONS DURING THIS ADMISSION: GI was consulted. Patient was seen by Dr. Burnette, followed up by Dr. Mcintosh. INVASIVE PROCEDURES DONE DURING THIS ADMISSION: EGD was done by Dr. Burnette. Findings included a short stricture at the GE junction. A biopsy was taken. ADMISSION DIAGNOSES: 1. Elevated D-dimer. 2. Right calf pain. 3. Abdominal pain. 4. Dysphagia. 5. Esophagitis. 6. Hypertension. 7. Hypothyroidism. DIAGNOSES AT THE TIME OF DISCHARGE: 1. Symptomatic nonobstructive bilateral nephrolithiasis, worse on the left, improved. 2. Dysphagia secondary to esophageal stricture. The patient underwent esophagogastroduodenoscopy and some dilation, and biopsies taken. 3. Hypertension, controlled. 4. Diabetes mellitus. 5. Hypothyroidism. 6. Clinical volume depletion, improved. 7. Vitamin D deficiency. DISCHARGE MEDICATIONS: 1. Metformin 1000 mg p.o. q.8. 2. Gabapentin 300 mg b.i.d. 3. Synthroid 137 mcg p.o. daily. 4. Methocarbamol 500 p.o. q.8. 5. Metoprolol 50 mg p.o. daily. 6. Cholecalciferol 125 mcg p.o. daily. 7. Tamsulosin 0.4 p.o. daily. 8. Benazepril 140 mg p.o. daily. 9. Hydrochlorothiazide 25 mg p.o. daily. 10. Carafate 1 g p.o. daily. 11. Omeprazole 40 mg b.i.d. IMAGING STUDIES OF SIGNIFICANCE DURING THIS ADMISSION: 1. A chest x-ray was unremarkable. 2. A CT scan of the abdomen and pelvis showed chronic reflux esophagitis, bilateral nonobstructing renal stones. 3. Lung scan was negative for pulmonary embolism. Admission diagnoses are lower abdominal pain and dysphagia. HISTORY OF PRESENTING COMPLAINT: Mr. Zamorano is a 58-year-old, male with a history of hypertension, diabetes, dyslipidemia, GERD, esophagitis, tobacco use. Came to the emergency department because of lower abdominal pain which has been going on for some time. He also did complain of some chronic dysphagia. The patient was evaluated in the ER. He was scanned and was found to have nonobstructive bilateral kidney stones. We thought that was the reason for his admission. Because he did have some dysphagia, GI was consulted. HOSPITAL COURSE: During the hospital course, Mr. Zamorano was started on IV hydration and pain management. GI was consulted. Patient underwent EGD with dilation of the esophagus, which he tolerated well. Subsequently, he was started on some clear and was advanced, and he did tolerate well. This morning, he feels fine. He denies any difficulty swallowing and his renal colic pain has all resolved. We think he is in stable condition for discharge. All the discharge instructions have been discussed with him and he voiced understanding. Specifically, we stressed the need for tobacco cessation. DISCHARGE VITAL SIGNS: Blood pressure is 108/75, pulse of 76, respirations are 18, temperature is 98.3 degrees. We have also advised Mr. Zamorano to be compliant with medication for the control of his other chronic comorbidities. Other discharge instructions have been discussed with him. There was also another male friend of his in the room at the time of the discharge. They all voiced understanding. Time spent for discharge is 37 minutes. cc: MD Ash Redd MD Michael Kelso, MD
--- NOTE | 2019-07-15 00:13 | Extremity Venous Study ---
PROCEDURE NAME: Venous U/S Bilateral Legs - 07/11/2019 PROCEDURE: Bilateral lower extremity venous centrex radio operator: Rayo. REQUESTING PHYSICIAN: Beto. INDICATION: Elevated D-dimer. FINDINGS: Deep and superficial veins of bilateral lower extremities visualized along their course. All vessels are compressible with forward flow and no evidence of intraluminal thrombus. There was incidentally noted venous reflux both in the right and left common femoral vein and in the left greater saphenous vein. Could correlate with a dedicated reflux exam as indicated. cc: Madie Rolle MD
== END 2019-07-13 11:39 | disposition home or self-care (01) | DRG 375 ==
LOC: ED 16:08 → SUATTDRO 16:09 → 3N 16:09
PROVIDERS: ATTEND Internal Medicine